=== PATIENT | male | born 1960 | race Caucasian/White ===

== ENCOUNTER → 2016-12-22 | Outpatient (CLI) | payer OTHER ==
[~2016-12-22] MED LIST: AMOX500T PO; FEXO1TAB58 PO; MELO15TA4 PO; PRLSR20 PO
[2016-12-22 13:25] LABS: ALT/SGPT 29 U/L (12-78); BLOOD UREA NITROGEN 18 mg/dl (7-18); CALCIUM 9.1 mg/dl (8.5-10.1); CARBON DIOXIDE 22 mmol/L (21-32); CHLORIDE 109 mmol/L (98-107); GLUCOSE 96 mg/dl (70-99); POTASSIUM 4.1 mmol/L (3.5-5.1); SODIUM 139 mmol/L (136-145)
[2016-12-22 13:36] LABS: ALKALINE PHOSPHATASE 95 U/L (45-117); AST/SGOT 19 U/L (15-37); CHOLESTEROL 141 mg/dl (0-200); CHOLESTEROL/HDL RATIO 3.2; HDL CHOLESTEROL 44 mg/dl; LDL CHOLESTEROL CALCULATED 74 mg/dl; TRIGLYCERIDES 116 mg/dl (0-150); VERY LOW DENSITY LIPOPROT CALC 23 mg/dl
== END | disposition home or self-care (01) ==
LOC: C.LABPVFM 08:03
PROVIDERS: ATTEND Psychiatry & Neurology Neurology
DX: I63.441 Cerebral infarction due to embolism of right cerebellar artery (principal); E78.2 Mixed hyperlipidemia

== ENCOUNTER → 2017-02-03 | Outpatient (CLI) | payer OTHER | END | disposition home or self-care (01) | LOC: C.LABPVFM 11:11 | PROVIDERS: ATTEND Family Medicine | DX: N52.9 Male erectile dysfunction, unspecified (principal) ==

== ENCOUNTER 2017-04-23 20:17 | Emergency (ER) | payer OTHER ==
[~2017-04-23] VITALS: Ht 180.3 cm; Wt 142.2 kg
[2017-04-23 20:21] VITALS: TEMP 37.1; Ht 180.3 cm; Wt 142.2 kg
--- NOTE | 2017-04-23 20:37 | EMERGENCY ROOM VISIT NOTE ---
History Report prepared by Mari: Maria Bardales Under the Supervision of: Dr. Leodan Camilo M.D. First contact with patient: 20:23 Chief Complaint: OTHER COMPLAINT Stated Complaint: HERNIA History of Present Illness The patient is a 56 year old white male with a past medical history of diverticulitis and a previous CVA who presents to the ED with a cc of worsening umbilical hernia pain beginning at 0700 this morning. He rates his discomfort as an 8/10 in severity. Positive increased pain with movement. Negative fevers, chills, nausea, vomiting, urinary symptoms or pain or swelling in his legs. He denies any recent trauma to his abdomen or increased straining. He notes he has not had a bowel movement since last night. He cannot remember the last time he passed gas. He does take daily blood thinners for his history of stroke. He notes he has never undergone surgery on his abdomen before. Source of History: patient Onset: 0700 this morning Position: abdomen (RLQ) Symptom Intensity: 8/10 Timing: worsening Modifying Factors (Worsening): movement Associated Symptoms: No fevers, No chills, No nausea, No vomiting, No urinary symptoms Review of Systems See HPI for pertinent positives and negatives. A total of ten systems were reviewed and were otherwise negative. Past Medical & Surgical Medical Problems: (1) Diverticulitis Colon (W/O Ment Of Hemorrhage) (2) Diverticulosis Colon (W/O Ment Of Hemorrhage) (3) Hyperlipidemia Surgical Problems: (1) History of knee surgery Family History No significant family history Social History Smoking Status: Never Smoker Alcohol Use: none Drug Use: none Marital Status: Housing Status: lives with family Occupation Status: employed Current/Historical Medications Scheduled Aspirin (Aspirin Ec), 81 MG PO DAILY Fexofenadine-Pseudoephedrine (Jane-D 24 Hour Allergy), 1 TAB PO DAILY Omeprazole (Prilosec), 20 MG PO DAILY [Atorvastatin], 1 TAB PO DAILY Allergies Coded Allergies: No Known Allergies (Unverified , 05/14/16) Physical Exam Vital Signs Date Time Temp Pulse Resp B/P (MAP) Pulse Ox O2 Delivery O2 Flow Rate FiO2 04/23/17 21:53 85 20 126/89 92 Room Air 04/23/17 20:21 37.1 89 18 157/93 93 Room Air Physical Exam GENERAL: Awake, alert, obese, well-appearing, NAD HENT: Normocephalic, atraumatic. EYES: Normal conjunctiva. Sclera non-icteric. NECK: Supple. No nuchal rigidity. FROM. RESPIRATORY: CTAB, no rhonchi, wheezing, crackles CARDIAC: RRR, no MRG ABDOMEN: Soft, non-reducible umbilical hernia with mild erythema and pain. BS+ MSK: No chest wall TTP, no LE edema NEURO: GCS 15, CN 2-12 intact, moves all 4s on command SKIN: No rash or jaundice noted. Medical Decision & Procedures ER Provider Diagnostic Interpretation: Radiology results as stated below per my review and radiologist interpretation: ABD/PELVIS IV CONTRAST ONLY CLINICAL HISTORY: 56 years-old Male presenting with umbilical hernia w/ pain, subjectively enlarging hernia. TECHNIQUE: Multidetector CT of the abdomen and pelvis was performed after the administration of intravenous contrast. IV contrast: 94 mL of Optiray 320. A dose lowering technique was used consistent with the principles of ALARA (as low as reasonably achievable). COMPARISON: None. CT DOSE (mGy.cm): The estimated cumulative dose is 1792.62 mGy.cm. FINDINGS: Shoes Salesperson topogram: Unremarkable. Lung bases: Lung bases clear. Normal heart size. No pericardial or pleural effusion. Liver: Normal morphology. Subcentimeter hypodensity in the right hepatic lobe, indeterminate but likely hepatic cyst. Patent hepatic vasculature. Biliary: No intrahepatic or extrahepatic biliary ductal dilatation. Normal gallbladder. Pancreas: Mild parenchymal atrophy. Spleen: Normal. Adrenal glands: Normal. Kidneys and ureters: 8.2 cm left and 3.0 cm right simple appearing renal cysts. Few additional well-defined hypodensities likely also simple cysts. No hydronephrosis. No nephrolithiasis. Ureters normal. Bladder: Incompletely evaluated secondary to underdistention. Pelvic organs: Prostate and seminal vesicles normal. Bowel: Limited sigmoid diverticulosis. Normal appendix. Herniation of small bowel into the umbilical hernia. At this point there is focal downstream obstruction of mid small bowel (series 3 image 278). Upstream, small bowel tapers gradually to a normal caliber in the jejunum. No perienteric inflammatory change in the hernia sac, although fluid is present. No apparent bowel wall thickening. Peritoneal cavity: Small amount of fluid in the umbilical hernia. No free intraperitoneal gas. Lymph nodes: No enlarged lymph nodes in the abdomen or pelvis. Vasculature: Aorta and IVC patent and normal in caliber. Abdominal wall: Umbilical hernia containing small bowel and fluid. Left lipoma versus hernia between the layers of the left oblique muscles. Musculoskeletal: Normal. IMPRESSION: 1. Findings consistent with small bowel obstruction at the level of the umbilical hernia. No bowel wall thickening or perienteric changes in the hernia sac, although fluid is present. This is equivocal for early ischemia of the herniated loop of bowel. Surgical consultation advised. The report will be called/faxed according to standard departmental protocol. Electronically signed by: Alistair Meadows M.D. 04/23/2017 9:59 PM Laboratory Results 04/23/17 20:55 Red Blood Count 5.01, Mean Corpuscular Volume 85.4, Mean Corpuscular Hemoglobin 29.5, Mean Corpuscular Hemoglobin Concent 34.6, Mean Platelet Volume 10.6, Neutrophils (%) (Auto) 76.6, Lymphocytes (%) (Auto) 13.7, Monocytes (%) (Auto) 7.6, Eosinophils (%) (Auto) 1.6, Basophils (%) (Auto) 0.4, Neutrophils # (Auto) 6.13, Lymphocytes # (Auto) 1.10, Monocytes # (Auto) 0.61, Eosinophils # (Auto) 0.13, Basophils # (Auto) 0.03 Test 04/23/17 20:55 04/23/17 21:07 04/23/17 21:20 White Blood Count 8.01 K/uL (4.8-10.8) Red Blood Count 5.01 M/uL (4.7-6.1) Hemoglobin 14.8 g/dL (14.0-18.0) Hematocrit 42.8 % (42-52) Mean Corpuscular Volume 85.4 fL (80-100) Mean Corpuscular Hemoglobin 29.5 pg (25-34) Mean Corpuscular Hemoglobin Concent 34.6 g/dl (32-36) Platelet Count 235 K/uL (130-400) Mean Platelet Volume 10.6 fL (7.4-10.4) Neutrophils (%) (Auto) 76.6 % Lymphocytes (%) (Auto) 13.7 % Monocytes (%) (Auto) 7.6 % Eosinophils (%) (Auto) 1.6 % Basophils (%) (Auto) 0.4 % Neutrophils # (Auto) 6.13 K/uL (1.4-6.5) Lymphocytes # (Auto) 1.10 K/uL (1.2-3.4) Monocytes # (Auto) 0.61 K/uL (0.11-0.59) Eosinophils # (Auto) 0.13 K/uL (0-0.5) Basophils # (Auto) 0.03 K/uL (0-0.2) RDW Standard Deviation 42.6 fL (36.4-46.3) RDW Coefficient of Variation 13.8 % (11.5-14.5) Immature Granulocyte % (Auto) 0.1 % Immature Granulocyte # (Auto) 0.01 K/uL (0.00-0.02) Total Bilirubin 1.2 mg/dl (0.2-1) Direct Bilirubin 0.3 mg/dl (0-0.2) Aspartate Amino Transf (AST/SGOT) 21 U/L (15-37) Alanine Aminotransferase (ALT/SGPT) 29 U/L (12-78) Alkaline Phosphatase 93 U/L (45-117) Total Protein 6.8 gm/dl (6.4-8.2) Albumin 3.7 gm/dl (3.4-5.0) Lipase 130 U/L (73-393) Bedside Hemoglobin 15.3 g/dl (14.0-18.0) Bedside Hematocrit 45 % (42-52) Bedside Sodium 140 mEq/L (135-144) Bedside Potassium 3.9 mEq/L (3.3-5.0) Bedside Chloride 104 mEq/L (101-112) Bedside Total CO2 25 mEq/l (24-31) Anion Gap 16.0 mmol/L (16-25) Bedside Blood Urea Nitrogen 18 mg/dl (7-18) Bedside Creatinine 0.9 mg/dl (0.6-1.3) Bedside Glucose (other) 127 mg/dl (70-99) Bedside Ionized Calcium (Ad) 1.16 mmol/l (1.12-1.32) Lactic Acid Level 1.3 mmol/L (0.4-2.0) Laboratory results reviewed by me Medications Administered Medications (Trade) Dose Ordered Sig/Morgan Route Start Time Stop Time Status Last Admin Dose Admin Morphine Sulfate (MoRPHine SULFATE INJ) 10 mg NOW STAT IM 04/23/17 20:40 04/23/17 20:43 DC 04/23/17 21:13 10 MG Ondansetron HCl (Zofran Inj) 4 mg NOW STAT IV 04/23/17 20:40 04/23/17 20:43 DC 04/23/17 21:13 4 MG ED Course 2026: The patient was evaluated in room C5. A complete history and physical exam was performed. 2048: I discussed the patients case with Dr. Todd, [facility] [place]. The patient will be further evaluated. 2204: Dr. Todd informed me he has reduced the patients hernia. We will make sure he can tolerate PO and will have him follow up with General Surgery. 2211: I reevaluated the patient. He is feeling much better. I discussed his results and discharge instructions and he verbalized complete understanding and agreement. Medical Decision The patient is a 56 year old white male with a past medical history of diverticulitis and a previous CVA who presents to the ED with a cc of worsening umbilical hernia pain beginning at 0700 this morning. Triage Nursing notes reviewed. The patient's presentation and history were concerning for abdominal pain. Differential diagnosis: Etiologies such as appendicitis, diverticulitis, PUD, biliary pathology, UTI, pancreatitis, obstruction, mesenteric ischemia, aortic pathology, infections, inflammatory bowel disease, renal colic, as well as others were entertained. Patient was seen and evaluated at the bedside. Patient did have prior history of a fairly small lump likely hernia. Patient states that became more protruding this morning as he was hunting and up and history stand. Patient denies any history of heavy lifting, cough, sneezing. Patient does complain affirmative pain. Patient states that he's been obstipated and has not had a bowel movement since yesterday. Patient denies any nausea vomiting or fevers or chills. On exam patient does have a hernia at the umbilicus. It is painful and tender. Patient did have blood work along with a CT of the head and pelvis completed. I did speak with general surgery initially given the concern for an incarcerated hernia. Patient's CT of the arm pelvis did show a small bowel obstruction and a possibly early sign of ischemia at the hernia site. General surgery had already seen the patient prior to this in the patient's hernia been reduced without complication. Patient was not complaining of much pain. Patient's blood work was fairly unremarkable as the patient had a normal white blood cell count normal lactate. Patient was able tolerate by mouth without issue. Patient was given an abdominal binder which is placed over the abdomen and the patient was given follow-up with general surgery in order to optimize the patient and discussed outpatient treatment for his hernia repair. Patient was amenable to this plan. Patient was told to slowly advance his diet as tolerated. Patient was given warning signs for which she should return to the emergency department. Patient was given strict follow-up, discharge, and return precautions. All questions were answered. Patient was deemed suitable for outpatient follow-up at this time. Patient agreed with the plan of care and was safely discharged home. Medication Reconcilliation Current Medication List: was personally reviewed by me Blood Pressure Screening Patient's blood pressure: Elevated blood pressure Blood pressure disposition: Referred to PCP Consults Time Called: 2045 Consulting Physician: CHRISTIAN Che General Surgery Returned Call: 2048 I discussed the patients case with CHRISTIAN Che General Surgery. The patient will be further evaluated. Impression Primary Impression: SBO (small bowel obstruction) Additional Impression: Incarcerated hernia Scribe Attestation The scribe's documentation has been prepared under my direction and personally reviewed by me in its entirety. I confirm that the note above accurately reflects all work, treatment, procedures, and medical decision making performed by me. Departure Information Dispostion Home / Self-Care Referrals Hilary Richard M.D. (PCP) Topher Todd, DO Patient Instructions Hernia, Hernia How Develops, [facility] Additional Instructions Please return to the emergency department if you have worsening or recurrent symptoms not amenable to at-home treatment. Please call for a follow-up appointment with her primary care physician. Please take your medications as prescribed. If you have other concerns and/or complaints please feel free to also call your primary care physician's office or return the ED for further evaluation, management, and treatment. You were found to have an elevated blood pressure today (>120 sytolic or >90 diastolic). Per medicare guidelines, you need to follow up with this blood pressure screening with your Primary Care Physician (PCP). For a new PCP call [phone]. You received narcotic or benzodiazepene medication while in the emergency room today. This is an addictive medication that may cause drowziness as well as constipation. Do not drive, operate heavy machinery, or drink alcohol under the influence of this medication. You may take 600 mg Ibuprofen every 6 hours as needed for pain with food for no more than 2 consecutive days. You may take tylenol 1000 mg every 6 hours as needed for pain. You may take motrin and tylenol separately or at the same time. Please ensure that you call Dr. Todd office in order to schedule follow-up appointment. Please use clear liquids and slowly advance her diet as tolerated. Please avoid things like excessive straining either with acting heavy items, we are having a bowel movement, sneezing, and/or coughing. If you do have to sneeze or cough, but mouth would do it with her mouth open. You have been examined and treated today on an emergency basis only. This is not a substitute for, or an effort to provide, complete comprehensive medical care. It is impossible to recognize and treat all injuries or illnesses in a single emergency department visit. It is therefore important that you follow up closely with [facility], your PCP, and/or your specialist(s). Call as soon as possible for an appointment. Thank you for your time and consideration. I look forward to speaking with you again soon. Please don't hesitate to call us if you have any questions. Problem Qualifiers
[2017-04-23] MEDS ORDERED: MoRPHine SULFATE 10 MG/ML CARP/VIAL IM STA (20:40)
[2017-04-23] MEDS ORDERED: ONDANSETRON INJ 2 MG/ML 2 ML VIAL IV STA (20:40)
[2017-04-23] MEDS ORDERED: ASPI81TA28 PO (20:48)
[2017-04-23] MEDS ORDERED: ATORVASTATIN PO (20:48)
[2017-04-23] MEDS ORDERED: OPTIRAY 320 IV PRN (21:00)
[2017-04-23 21:09] LABS: BASO % 0.4 %; BASO ABS # 0.03 K/uL (0-0.2); COMPLETE YES; EOS % 1.6 %; HEMATOCRIT 42.8 % (42-52); IG% 0.1 %; LYMPH % 13.7 %; MEAN CELL VOLUME 85.4 fL (80-100); MEAN CORPUSCULAR HEMOGLOBIN 29.5 pg (25-34); MEAN CORPUSCULAR HGB CONC 34.6 g/dl (32-36); MEAN PLATELET VOLUME 10.6 fL (7.4-10.4); MONO % 7.6 %; NEUT % 76.6 %; PLATELET COUNT 235 K/uL (130-400); RED BLOOD COUNT 5.01 M/uL (4.7-6.1); WHITE BLOOD COUNT 8.01 K/uL (4.8-10.8)
[2017-04-23 21:21] LABS: ISTAT CREATININE 0.9 mg/dl (0.6-1.3); ISTAT HEMOGLOBIN 15.3 g/dl (14.0-18.0); ISTAT IONIZED CALCIUM 1.16 mmol/l (1.12-1.32)
--- NOTE | 2017-04-23 22:00 | DIAGNOSTIC IMAGING REPORT ---
ABD/PELVIS IV CONTRAST ONLY CLINICAL HISTORY: 56 years-old Male presenting with umbilical hernia w/ pain, subjectively enlarging hernia. TECHNIQUE: Multidetector CT of the abdomen and pelvis was performed after the administration of intravenous contrast. IV contrast: 94 mL of Optiray 320. A dose lowering technique was used consistent with the principles of ALARA (as low as reasonably achievable). COMPARISON: None. CT DOSE (mGy.cm): The estimated cumulative dose is 1792.62 mGy.cm. FINDINGS: P 3 Armament/Ordnance Ima Technician topogram: Unremarkable. Lung bases: Lung bases clear. Normal heart size. No pericardial or pleural effusion. Liver: Normal morphology. Subcentimeter hypodensity in the right hepatic lobe, indeterminate but likely hepatic cyst. Patent hepatic vasculature. Biliary: No intrahepatic or extrahepatic biliary ductal dilatation. Normal gallbladder. Pancreas: Mild parenchymal atrophy. Spleen: Normal. Adrenal glands: Normal. Kidneys and ureters: 8.2 cm left and 3.0 cm right simple appearing renal cysts. Few additional well-defined hypodensities likely also simple cysts. No hydronephrosis. No nephrolithiasis. Ureters normal. Bladder: Incompletely evaluated secondary to underdistention. Pelvic organs: Prostate and seminal vesicles normal. Bowel: Limited sigmoid diverticulosis. Normal appendix. Herniation of small bowel into the umbilical hernia. At this point there is focal downstream obstruction of mid small bowel (series 3 image 278). Upstream, small bowel tapers gradually to a normal caliber in the jejunum. No perienteric inflammatory change in the hernia sac, although fluid is present. No apparent bowel wall thickening. Peritoneal cavity: Small amount of fluid in the umbilical hernia. No free intraperitoneal gas. Lymph nodes: No enlarged lymph nodes in the abdomen or pelvis. Vasculature: Aorta and IVC patent and normal in caliber. Abdominal wall: Umbilical hernia containing small bowel and fluid. Left lipoma versus hernia between the layers of the left oblique muscles. Musculoskeletal: Normal. IMPRESSION: 1. Findings consistent with small bowel obstruction at the level of the umbilical hernia. No bowel wall thickening or perienteric changes in the hernia sac, although fluid is present. This is equivocal for early ischemia of the herniated loop of bowel. Surgical consultation advised. The report will be called/faxed according to standard departmental protocol. Electronically signed by: Alistair Meadows M.D. 04/23/2017 9:59 PM Dictated Date/Time: 04/23/2017 9:51 PM
--- NOTE | 2017-04-23 22:25 | Medical Consult ---
Consultation Date of Consultation: Apr 23, 2017. Attending Physician: Reason for Consultation: Umbilical hernia History of Present Illness 56-year-old obese male with several year history of a known umbilical hernia, presents to the emergency department with increased pain and swelling at his umbilicus. He was hunting this morning and noticed some pain after getting down from his tree stand. He noticed it was firm and more swollen than normal. It was very tender to the touch. He has never had any previous episodes similar to this. He experienced some cramping abdominal pain as well. No prior abdominal pain, no prior umbilical hernia repair. He has not been passing gas. Mild nausea, no vomiting. Past Medical/Surgical History Past medical history: Morbid obesity, history of stroke, umbilical hernia, GERD , hyperlipidemia Past surgical history: Denies previous abdominal surgery Family History No significant family history Social History Smoking Status: Never Smoker Drug Use: none Marital Status: Housing Status: lives with family Occupation Status: employed Allergies Coded Allergies: No Known Allergies (Unverified , 05/14/16) Home Medications Active Reported [Atorvastatin] 1 Tab PO DAILY Aspirin Ec (Aspirin) 81 Mg Tab 81 Mg PO DAILY Prilosec (Omeprazole) 20 Mg Capcr 20 Mg PO DAILY Jane-D 24 Hour Allergy (Fexofenadine-Pseudoephedrine) 1 Tab Tab 1 Tab PO DAILY 30 Days Current Inpatient Medications Current Inpatient Medications Medications (Trade) Dose Ordered Sig/Morgan Route Start Time Stop Time Status Last Admin Dose Admin Ioversol (Optiray 320) 100 ml UD PRN IV 04/23/17 21:00 04/27/17 20:59 Review of Systems 10 point review of systems negative except as above Physical Exam Date Time Temp Pulse Resp B/P (MAP) Pulse Ox O2 Delivery O2 Flow Rate FiO2 04/23/17 21:53 85 20 126/89 92 Room Air 04/23/17 20:21 37.1 89 18 157/93 93 Room Air General Appearance: WD/WN, no apparent distress, + obese Head: normocephalic, atraumatic Eyes: normal inspection, PERRL ENT: normal ENT inspection, hearing grossly normal Neck: supple, no adenopathy, thyroid normal, no JVD, trachea midline Respiratory/Chest: chest non-tender, lungs clear, normal breath sounds, no respiratory distress, no accessory muscle use Cardiovascular: regular rate, rhythm, no edema, no gallop, no JVD, no murmur, normal peripheral pulses Abdomen/GI: normal bowel sounds, soft, + tenderness (tenderness at umbilicus, otherwise unremarkable), + pertinent finding (obese abdomen. Umbilical hernia that was able to be reduced at the bedside. No significant erythema or purpura. 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-XII nml as tested, alert, normal mood/affect, oriented x 3 Skin: normal color, warm/dry, no rash Lymphatic: no adenopathy Laboratory Results Last 24 Hours Test 04/23/17 20:55 04/23/17 21:07 04/23/17 21:20 White Blood Count 8.01 K/uL Red Blood Count 5.01 M/uL Hemoglobin 14.8 g/dL Hematocrit 42.8 % Mean Corpuscular Volume 85.4 fL Mean Corpuscular Hemoglobin 29.5 pg Mean Corpuscular Hemoglobin Concent 34.6 g/dl Platelet Count 235 K/uL Mean Platelet Volume 10.6 fL Neutrophils (%) (Auto) 76.6 % Lymphocytes (%) (Auto) 13.7 % Monocytes (%) (Auto) 7.6 % Eosinophils (%) (Auto) 1.6 % Basophils (%) (Auto) 0.4 % Neutrophils # (Auto) 6.13 K/uL Lymphocytes # (Auto) 1.10 K/uL Monocytes # (Auto) 0.61 K/uL Eosinophils # (Auto) 0.13 K/uL Basophils # (Auto) 0.03 K/uL RDW Standard Deviation 42.6 fL RDW Coefficient of Variation 13.8 % Immature Granulocyte % (Auto) 0.1 % Immature Granulocyte # (Auto) 0.01 K/uL Total Bilirubin 1.2 mg/dl Direct Bilirubin 0.3 mg/dl Aspartate Amino Transf (AST/SGOT) 21 U/L Alanine Aminotransferase (ALT/SGPT) 29 U/L Alkaline Phosphatase 93 U/L Total Protein 6.8 gm/dl Albumin 3.7 gm/dl Lipase 130 U/L Bedside Hemoglobin 15.3 g/dl Bedside Hematocrit 45 % Bedside Sodium 140 mEq/L Bedside Potassium 3.9 mEq/L Bedside Chloride 104 mEq/L Bedside Total CO2 25 mEq/l Anion Gap 16.0 mmol/L Bedside Blood Urea Nitrogen 18 mg/dl Bedside Creatinine 0.9 mg/dl Bedside Glucose (other) 127 mg/dl Bedside Ionized Calcium (Ad) 1.16 mmol/l Lactic Acid Level 1.3 mmol/L CT abdomen/pelvis: Umbilical hernia with a small loop of bowel within the hernia. No evidence of ischemia or significant obstruction on my review. Assessment & Plan 56-year-old obese male with umbilical hernia. I was able to reduce the hernia at the bedside and the patient had significant relief from his cramping and pain. I discussed his options to include admission with umbilical hernia repair tomorrow versus elective repair as an outpatient. The patient elects for repair as an outpatient. No acute surgical intervention indicated Okay to discharge patient home after brief observation We will give the patient an abdominal binder, and he was advised to do no heavy lifting restraints activity until he sees us in clinic. He was educated on the signs and symptoms of incarceration, strangulation, and obstruction. He was also instructed on how to potentially reduce his hernia. I gave them my card and he can follow up as an outpatient to plan for elective repair Return precautions given Diagnosis, treatment options, details of the surgery, and the plan of care were discussed the patient, all questions are answered, the patient expressed understanding and agreed with the plan of care as stated
[2017-04-23 22:47] VITALS: BP 133/86; PULSE 88; O2SAT 94
== END 2017-04-23 22:52 | disposition home or self-care (01) ==
LOC: C.EDB 20:18 → C.EDC 22:52
DX: K42.0 Umbilical hernia with obstruction, without gangrene (principal); K57.30 Diverticulosis of large intestine without perforation or abscess without bleeding; R40.2412 Glasgow coma scale score 13-15, at arrival to emergency department; R03.0 Elevated blood-pressure reading, without diagnosis of hypertension; Z79.82 Long term (current) use of aspirin

== ENCOUNTER 2017-05-10 10:29 | Day surgery (SDC) | payer OTHER ==
[2017-05-04 08:14] VITALS: BMI 44.0
[~2017-05-10] VITALS: Ht 180.3 cm; Wt 143.2 kg
[~2017-05-10 10:29] MED LIST changes: -AMOX500T PO; +ASPI81TA28 PO; +ATOR-24 PO; +CEFAZOLIN 3000MG IV PUSH 15 ML IV SCH; +CLR10 PO; -FEXO1TAB58 PO; +LACTATED RINGER'S 1000ML 1,000 ML IV SCH; -MELO15TA4 PO
[2017-05-10 11:00] VITALS: BP 144/97; PULSE 68; TEMP 36.8; O2SAT 95; Ht 180.3 cm; Wt 143.2 kg
[2017-05-10] MEDS ORDERED: MIDAZOLAM HCL 1 MG/ML 2ML VIAL ONE (11:45)
[2017-05-10] MEDS ORDERED: PROPOFOL IV EMULSION 10 MG/ML 20 ML VIAL IV ONE ×3 (11:45→13:32)
[2017-05-10] MEDS ORDERED: LIDOCAINE HCL 2% 2 ML VIAL (20MG/ML) ONE (11:45)
[2017-05-10] MEDS ORDERED: FENTANYL CITRATE INJ 50 MCG/1 ML 2 ML VIAL ONE (11:45)
[2017-05-10] MEDS ORDERED: ONDANSETRON INJ 2 MG/ML 2 ML VIAL ONE (11:45)
[2017-05-10] MEDS ORDERED: HYDROmorphone INJ 1 MG/ML SYR IV PRN (12:15)
[2017-05-10] MEDS ORDERED: KETOROLAC TROMETHAMINE 30 MG/ML VIAL IV. PRN (12:15)
[2017-05-10] MEDS ORDERED: ONDANSETRON INJ 2 MG/ML 2 ML VIAL IV PRN ×2 (12:15→15:15)
[2017-05-10] MEDS ORDERED: LABETALOL HCL IV 5 MG/ML 20ML IV PRN (12:15)
[2017-05-10] MEDS ORDERED: ATROPINE SULFATE 0.1 MG/ML 5ML SYR IV PRN (12:15)
--- NOTE | 2017-05-10 12:35 | History & Physical Bridge Note ---
H&P Re-Evaluation Bridge Note: I have examined the patient, reviewed the History & Physical and in the interval since the performance of the History & Physical I have noted the following changes of clinical significance: No changes noted
[2017-05-10] MEDS ORDERED: BUPIVACAINE 0.5 % 5 MG/1 ML MPF 30ML VIAL ONE (12:57)
[2017-05-10] MEDS ORDERED: EpHEDrine SULFATE 50MG/5ML SYR ONE (13:32)
[2017-05-10] MEDS ORDERED: ROCURONIUM BROMIDE 10 MG/ML 5 ML VIAL IV ONE (13:32)
[2017-05-10] MEDS ORDERED: DEXAMETHASONE SOD INJ 4 MG/ML VIAL ONE (13:32)
[2017-05-10] MEDS ORDERED: PHENYLEPHRINE 100MCG/ML 5ML SYR ONE (13:32)
[2017-05-10] MEDS ORDERED: NEOSTIGMINE METHYLSULFATE 5 MG/5 ML SYR ONE (13:33)
[2017-05-10] MEDS ORDERED: GLYCOPYRROLATE INJ 0.2 MG/ML VIAL ONE (13:33)
--- NOTE | 2017-05-10 14:42 | [facility] Post Operative Brief Note ---
Immediate Operative Summary Operative Date May 10, 2017. Pre-Operative Diagnosis Umbilical Hernia, incarcerated Post-Operative Diagnosis Same as preop Procedure(s) Performed Open Umbilical Hernia Repair with Mesh, incarcerated Surgeon Dr. Todd Asbestos Surveyor Surgeon(s) Merritt Isaac PA-C Estimated Blood Loss 5 ml Findings incarcerated omentum, very thin umbilicus, small defect to base of umbilicus created and closed. 3.5cm fascial defect, 6.4 cm cqur ventral mesh sown into place with 0 nurolon suture. Specimens None per Surgeon Drains None Anesthesia GETA Complication(s) None Disposition Recovery Room / PACU
--- NOTE | 2017-05-10 14:50 | [facility] Operative Report ---
Operative Report Operative Date May 10, 2017. Pre-Operative Diagnosis Umbilical Hernia, incarcerated Post-Operative Diagnosis Same Procedure(s) Performed Incarcerated umbilical hernia repair with mesh Surgeon Dr. Todd Loaf Counter Surgeon(s) Merritt Isaac PA-C Estimated Blood Loss 5 ml Findings incarcerated omentum, very thin umbilicus, small defect to base of umbilicus created and closed. 3.5cm fascial defect, 6.4 cm cqur ventral mesh sown into place with 0 nurolon suture. Specimens None per Surgeon Drains None Anesthesia GETA Complication(s) None Disposition Recovery Room / PACU Indications 56-year-old male with symptomatic umbilical hernia with incarcerated omentum. He had been seen previously in the emergency department and had a small bowel obstruction secondary to the hernia, but this resolved with reduction of the bowel. Plan for umbilical hernia repair with mesh. The risks of the procedure were discussed, all questions were answered, and the patient agreed to proceed with surgery as planned. Description of Procedure The patient was properly identified, consented, and taken to the operating room where he was placed in the supine position. General endotracheal anesthesia was induced. SCDs and a safety belt were placed. Preoperative antibiotics were administered. The patient's abdomen was prepped and draped in the standard sterile fashion. Surgical timeout was performed and all parties were in agreement that this was the correct patient and procedure to be performed and we continued as planned. A curvilinear infraumbilical incision was made and deepened down to the fascia with blunt dissection. The umbilical stalk was circumferentially dissected with a Cherise, and divided below the level of the skin. The umbilicus was very thin and the hernia sac was densely scarred to it. There was a small 1 cm injury created in the skin to the left side of the base of the umbilicus. This was repaired with a running 3-0 Vicryl deep dermal suture followed by 4-0 Monocryl running subcuticular suture. There is incarcerated omentum in the hernia sac. Hernia sac was circumferentially dissected away from surrounding soft tissue and off of the fascia. A 3.5 cm fascial defect was encountered. The hernia was reduced. The fascia anteriorly and posteriorly was cleared of investing tissue for several centimeters. Hemostasis was achieved within the wound. A 6.4 cm piece of C-Qur ventral hernia mesh was sown into place with interrupted 0 Nurolon sutures at the 12, 3, 6 and 9 o'clock positions. The defect was then closed transversely with interrupted 0 Nurolon [id number] sutures. The wound was irrigated and hemostasis confirmed. The umbilicus was tacked down to the fascia with 3-0 Vicryl sutures. Local anesthetic in the form of 0.5% Marcaine was injected in the fascia and along the skin incision. The skin was closed with interrupted 3-0 Vicryl deep dermal sutures, followed by 4-0 Monocryl running subcuticular suture. Dermabond was placed over the defect and the skin of the umbilicus and over the wound. A pressure dressing was then applied and abdominal binder was placed. The patient was extubated in the operating room and taken to the PACU where he recovered without apparent incident. All sponge, instrument and needle counts were correct at the conclusion of the procedure. The patient tolerated the procedure well. I attest to the content of the Intraoperative Record and any orders documented therein. Any exceptions are noted below.
[2017-05-10] MEDS ORDERED: SODIUM CHLORIDE 0.9% 1000ML 1,000 ML IV SCH (15:03)
[2017-05-10] MEDS ORDERED: OXYC-57 PO (15:03)
--- NOTE | 2017-05-10 15:03 | Discharge Instructions ---
Discharge Instructions Date of Service May 10, 2017. Visit Reason for Visit: Umbilical Hernia Discharge Discharge Diagnosis / Problem: Umbilical Discharge Goals Goal(s): Decrease discomfort, Improve function Activity Recommendations Activity Limitations: as noted below Lifting Limitations: no more than 10 pounds, until after follow-up appointment Exercise/Sports Limitations: until after follow-up appointment Shower/Bathe: tomorrow Driving or Machine Use: resume 3 days after discharge (Do not drive while under the influence of narcotic pain medication) Anesthesia . Post Anesthesia Instructions: If you have had General Anesthesia or IV Sedation: * Do not drive today. * Resume driving when surgeon permits. * Do not make important decisions or sign legal documents today. * Call surgeon for: 1. Temperature elevations greater than 101 degrees F. 2. Uncontrollable pain. 3. Excessive bleeding. 4. Persistent nausea and vomiting. 5. Medication intolerance (nausea, vomiting or rash). * For nausea and vomiting use only clear liquids such as: tea, soda, bouillon until nausea subsides, then gradually increase diet as tolerated. * If you have any concerns or questions, call your surgeon's office. If physician is unavailable and it is an emergency, call 911 or go to the nearest emergency room. . Instructions / Follow-Up Instructions / Follow-Up There is surgical glue covering your incision site. Please allow this to fall off on its own over the next 1-2 weeks. You have been given an abdominal binder. Please wear this whenever you are up and moving around to help strengthen your repair and reduce recurrence during your recovery period. You have been prescribed percocet for pain control. You may alternate this with ibuprofen for better pain relief. Please do not use tylenol while using the percocet as it already has tylenol in it. Please follow-up with Dr. Todd in the office in 1-2 weeks. Please contact our office at to schedule an appointment if you have not done so already. Please feel free to contact our office with any further questions or concerns at the number listed above. Diet Recommendations Recommended Home Diet: no limitations, resume previous diet Procedures Procedures Performed: Open Umbilical Hernia Repair with Mesh, incarcerated Pending Studies Studies pending at discharge: no Medical Emergencies . Who to Call and When: Medical Emergencies: If at any time you feel your situation is an emergency, please call 911 immediately. . Non-Emergent Contact Non-Emergency issues call your: Primary Care Provider, Surgeon Call Non-Emergent contact if: you have a fever, temperature is above 101.5, your pain is not controlled, your pain is worsening, wound has increased drainage, wound has increased redness . . "Provider Documentation" section prepared by Merritt Willoughby. . [place] Drug Monitoring Program Search Results: patient reviewed within database (no matching patient identified)
[2017-05-10] MEDS ORDERED: OXYCODONE/ACETAMINOPHEN 5-325 TAB PO PRN ×2 (15:15)
[2017-05-10] MEDS ORDERED: IBUPROFEN 600 MG TAB PO PRN (15:15)
--- NOTE | 2017-05-10 15:38 | Anesthesiology Progress Note ---
Anesthesia Post Op Note Date & Time May 10, 2017 at 15:38 Vital Signs Pain Intensity: 4.0 Vital Signs Past 12 Hours Date Time Temp Pulse Resp B/P (MAP) Pulse Ox O2 Delivery O2 Flow Rate FiO2 05/10/17 14:56 36.3 77 12 135/80 97 Oxymask 10 05/10/17 11:00 36.8 68 18 144/97 (113) 95 Room Air Notes Mental Status: alert / awake / arousable, participated in evaluation Pt Amnestic to Procedure: Yes Nausea / Vomiting: adequately controlled Pain: adequately controlled Airway Patency, RR, SpO2: stable & adequate BP & HR: stable & adequate Hydration State: stable & adequate Anesthetic Complications: no major complications apparent
[2017-05-10 15:55] VITALS: BP 150/94; PULSE 74; TEMP 36.5; O2SAT 95
== END 2017-05-10 16:45 | disposition home or self-care (01) ==
LOC: C.ACU 10:29
PROVIDERS: ATTEND Surgery
DX: K42.0 Umbilical hernia with obstruction, without gangrene (principal); K21.9 Gastro-esophageal reflux disease without esophagitis; E78.00 Pure hypercholesterolemia, unspecified; G47.33 Obstructive sleep apnea (adult) (pediatric); E66.9 Obesity, unspecified; M16.11 Unilateral primary osteoarthritis, right hip; N52.9 Male erectile dysfunction, unspecified; Z86.73 Personal history of transient ischemic attack (TIA), and cerebral infarction without residual deficits; Z79.899 Other long term (current) drug therapy

== ENCOUNTER → 2017-05-13 | Outpatient (CLI) | payer OTHER ==
[~2017-05-13] MED LIST changes: -CEFAZOLIN 3000MG IV PUSH 15 ML IV SCH; -LACTATED RINGER'S 1000ML 1,000 ML IV SCH; +OXYC-57 PO
== END | disposition home or self-care (01) ==
LOC: C.LABPVFM 10:29
PROVIDERS: ATTEND Family Medicine
DX: J02.9 Acute pharyngitis, unspecified (principal)

== ENCOUNTER 2018-08-23 05:05 | Inpatient (IN) ==
--- NOTE | 2018-06-23 10:54 | Anesthesiology Consultation ---
Date of Service June 23, 2018 Assessment & Plan (1) Encounter for pre-operative examination: Chart Review Chart Review: Acceptable Risk for Surgery and Patient seen in Pre Admission Testing Teaching & Discussion Instructed NPO after midnight before surgery, except medications with 15 cc of water. Medication instructions provided according to the PAT guidelines. History Surgery Operation Date: 07/28/18 11:50 Proposed Procedures p Right Anterior Total Hip Arthroplasty - Merritt Rdz DO Height/Weight Height: 5 ft 11 in Weight: 142.7 kg Allergies Allergy/AdvReac Type Severity Reaction Status Date / Time No Known Allergies Allergy Unverified 06/19/18 10:59 Medications Home Medications Medication Instructions Recorded Confirmed Last Taken Omeprazole 20 mg PO QPM 06/19/18 06/19/18 Unknown aspirin [Aspir-81] 1 tab PO HS 06/19/18 06/19/18 Unknown atorvastatin 40 mg PO HS 06/19/18 06/19/18 Unknown loratadine [Claritin] 10 mg PO HS 06/19/18 06/19/18 Unknown Past Medical History Medical History Acid reflux Arthritis History of stroke 05/14/16--[facility] ED, transferred to [place]. NO RESIDUAL EFFECTS. --Brain MRI 05/18/16: Relatively large subacute infarct inferior right cerebellar hemisphere. 2 punctate subacute infarct right parietal convexity. Study is otherwise negative. Morbid obesity PFO (patent foramen ovale) Found on echo at [place] during w/u for ischemic stroke 2015. No evidence of afib or flutter seen with Holter so per neuro pt to continue ASA 81 and statin indefinitely for CVA prevention. Sinus problem CHRONIC SINUS DRAINAGE/MUCUS Past Family History Family History Grandmother (Paternal) Family history of cancer Past Surgical History Surgical History History of arthroscopy of left knee History of colonoscopy History of hernia repair Past Anesthesia History No Hx of Anesthesia Complications, No Family Hx of Anesthesia Complications and Other IN RECOVERY ROOM FOR HERNIA ([facility] 1 YR AGO) PT FELT PANICKED WHEN WAKING UP DUE TO LYING ON BACK & SINUS DRAINAGE PROBLEM- FELT LIKE HE WAS CHOKING...REQUESTING TO PLEASE KEEP HEAD ELEVATED IF POSSIBLE. History of PONV No Motion Sickness Screening History of Motion Sickness: No Social History Smoking Status: Never smoker Do You Dip or Chew Tobacco: No Hx Alcohol Use: No Hx Substance Use: No substance use type: does not use Exercise / Class Metabolic Activity III < 4 Walking/Shop/Light housework (pt reports SOB with stairs, denies CP. Obese/deconditioned) Review of Systems Pt denies any recent chest pain, shortness of breath, palpitations, fever. Currently being treated for sinus infection by PCP with Augmentin x 10 days ( will finish course prior to surgery) Physical Exam Vital Signs BP: 121/79 P: 89bpm SPO2: 94% RA T: 98.0 F R: 16 ENMT Mouth: no dental restorations, no chipped teeth and no loose teeth Thyromental Distance: > or= 3.5 Finger Breadths (3.5) Mallampati Class: II Neck normal visual inspection, + short neck and + thick neck; neck extension not limited Respiratory normal respiratory effort Auscultation: lungs clear to auscultation bilaterally Cardiovascular Rate/Rhythm: regular rate and regular rhythm Heart Sounds: no murmur Vessels: no carotid bruit Testing Electrocardiogram Date: 06/23/18 Findings: + NSR @ (73) Left axis deviation. iRBBB. No significant change from 05/02/17 EKG. Chest X-Ray Date: 06/23/18 Findings: + NAD Echocardiogram Date: 05/17/16 EF: 65% Normal LV size and systolic function with no regional wall motion abnormalities. No concentric LVH. Right ventricular dilation with normal RV systolic function. And intravenous agitated saline injection indicated a large right to left shunt across the atrial septum. Laboratory Results 06/23/18 11:57 06/23/18 11:57 Blood Type O Positive 06/23/18 11:57 Antibody Screen NEGATIVE 06/23/18 11:57 PT 10.4 Seconds (9.0-12.0) 06/23/18 11:57 INR 1.0 (0.9-1.1) 06/23/18 11:57 APTT 28.2 Seconds (21.0-31.0) 06/23/18 11:57
--- NOTE | 2018-06-23 11:51 | PAT Medication Instructions ---
Medication Instructions Date of Service June 23, 2018 Home Medications Omeprazole 20 mg PO QPM aspirin [Aspir-81] 1 tab PO HS atorvastatin 40 mg PO HS loratadine [Claritin] 10 mg PO HS Take evening before surgery Omeprazole 20 mg PO QPM aspirin [Aspir-81] 1 tab PO HS atorvastatin 40 mg PO HS loratadine [Claritin] 10 mg PO HS Other Notes If you have any questions please call us at [phone] or [phone] or [phone] or [phone]
--- NOTE | 2018-06-23 12:27 | XRay Report ---
XR chest Pre-admission PA/Lat CLINICAL HISTORY: pat preoperative evaluation COMPARISON STUDY: No previous studies for comparison. FINDINGS: 05/10/2016 IMPRESSION: Negative chest. The above report was generated using voice recognition software. It may contain grammatical, syntax or spelling errors. Electronically signed by: Clarke Gonzalez M.D. 06/23/2018 12:26 PM
[2018-06-23 12:58] LABS: Basophils # (auto) 0.04 K/uL (0-0.2); Basophils % (auto) 0.8 %; Eosinophils # (auto) 0.31 K/uL (0-0.5); Eosinophils % (auto) 6.1 %; Hematocrit (blood only) 43.4 % (42-52); Hemoglobin 14.6 g/dL (14.0-18.0); Immature Granulocytes # (auto) 0.01 K/uL (0.00-0.02); Immature Granulocytes % (auto) 0.2 %; Lymphocytes # (auto) 1.46 K/uL (1.2-3.4); Lymphocytes % (auto) 28.9 %; Mean Corpuscular Hgb Conc 33.6 g/dL (32-36); Mean Corpuscular Volume 86.8 fL (80-100); Mean Platelet Volume 11.2 fL (7.4-10.4); Monocytes # (auto) 0.47 K/uL (0.11-0.59); Monocytes % (auto) 9.3 %; Neutrophils # (auto) 2.77 K/uL (1.4-6.5); Neutrophils % (auto) 54.7 %; Platelet Count 248 K/uL (130-400); RDW Coefficient of Variation 13.8 % (11.5-14.5); RDW Standard Deviation 43.7 fL (36.4-46.3); White Blood Count 5.06 K/uL (4.8-10.8)
[2018-06-23 13:09] LABS: Partial Thromboplastin Ratio 1.1; Partial Thromboplastin Time 28.2 Seconds (21.0-31.0); Prothrombin Time 10.4 Seconds (9.0-12.0)
[2018-06-23 13:30] LABS: BUN Creatinine Ratio 18.2 (10-20); Calcium 9.1 mg/dl (8.5-10.1); Creatinine Clr Calc Pharmacy 112.6 ml/min; Est GFR (African American) 90.5; Est GFR (Non-African American) 78.1; Potassium 4.2 mmol/L (3.5-5.1)
--- NOTE | 2018-08-22 20:00 | History & Physical Report ---
Date of Service August 22, 2018 Assessment & Plan (1) Osteoarthritis of right hip: We will proceed with a right anterior total hip arthroplasty. Postoperatively he will be placed on aspirin twice a day for DVT prophylaxis. He will be kept overnight in the hospital for postop medical management. He plans to use [employer] upon discharge. Present on Admission?: Yes History of Present Illness Chief Complaint: Primary osteoarthritis of the right hip Primary Care Provider: Hilary Richard MD Humberto is a very pleasant 58-year-old male who is been dealing with a several year history of increasing right hip and groin pain. X-rays and clinical examination were diagnostic for primary osteoarthritis of the right hip. After failing conservative treatment, he has elected to proceed with a right anterior total hip arthroplasty. Allergies Allergy/AdvReac Type Severity Reaction Status Date / Time No Known Allergies Allergy Unverified 06/19/18 10:59 Home Medications Home Medications Medication Instructions Recorded Confirmed Type Omeprazole 20 mg PO QPM 06/19/18 06/19/18 History aspirin [Aspir-81] 1 tab PO HS 06/19/18 06/19/18 History atorvastatin 40 mg PO HS 06/19/18 06/19/18 History loratadine [Claritin] 10 mg PO HS 06/19/18 06/19/18 History Past Med/Surg History Medical History Acid reflux Arthritis History of stroke 05/14/16--[facility] ED, transferred to [place]. NO RESIDUAL EFFECTS. --Brain MRI 05/18/16: Relatively large subacute infarct inferior right cerebellar hemisphere. 2 punctate subacute infarct right parietal convexity. Study is otherwise negative. Morbid obesity PFO (patent foramen ovale) Found on echo at [place] during w/u for ischemic stroke 2015. No evidence of afib or flutter seen with Holter so per neuro pt to continue ASA 81 and statin indefinitely for CVA prevention. Sinus problem CHRONIC SINUS DRAINAGE/MUCUS Surgical History History of arthroscopy of left knee History of colonoscopy History of hernia repair Family History Grandmother (Paternal) Family history of cancer Social History Preferred Language: Kiswahili Communication Ability: Effective Beliefs That Will Affect Care: None Current Living Situation: Family Feels Safe at Home: Yes Smoking Status: Never smoker Hx Alcohol Use: No Hx Substance Use: No Review of Systems All systems reviewed & are unremarkable except as noted in HPI & below Physical Exam Constitutional: WD/WN, vitals as above Eyes: PERRL, conjunctivae normal, anicteric sclerae ENMT: external ear and nose normal, oropharynx normal Neck: trachea midline, no thyromegaly Respiratory: normal respiratory effort Cardiovascular: RRR, no murmur, no edema Gastrointestinal (Abdomen): normal bowel sounds, soft, nontender, no hepatosplenomegaly Musculoskeletal: Physical examination of the right hip reveals decreased range of motion with flexion, internal and external rotation. There is significant groin pain with forced internal rotation of the hip his leg lengths are essentially equal. Psychiatric: A+Ox3, euthymic affect Results & Data Diagnostic Findings Radiographs of the right hip and pelvis demonstrate advanced osteoarthritis with joint space narrowing osteophyte formation and [id number] articulation.
[2018-08-23] MEDS ORDERED: ACETAMINOPHEN 500 MG TAB PO SCH (06:00)
[2018-08-23] MEDS ORDERED: CEFAZOLIN 3000MG 65 ML IV SCH (06:00)
[2018-08-23] MEDS ORDERED: LR 500ML BOLUS, THEN 15ML/HR IV SCH (06:00)
[2018-08-23] MEDS ORDERED: GABAPENTIN 300 MG x 2 PO SCH (06:00)
[2018-08-23] MEDS ORDERED: ROPIVACAINE 0.5% HCL/PF 150 MG, BUPIVACAINE 0.5% MPF 30 ML, EPINEPHrine 30MG/30ML (OR U... INFIL SCH (06:00)
[2018-08-23] MEDS ORDERED: FAMOTIDINE 20 MG TAB PO SCH (06:00)
[2018-08-23] MEDS ORDERED: TRANEXAMIC ACID 1,000 MG **IV Pre-op IV SCH (06:00)
[2018-08-23] MEDS ORDERED: LR 60ML/HR IV SCH (06:00)
[2018-08-23] MEDS ORDERED: BUPIVACAINE 0.5 % 5 MG/1 ML PF 10ML VIAL ONE (06:29)
[2018-08-23] MEDS ORDERED: TRANEXAMIC ACID 1,000 MG **IV Intra-op IV SCH (06:30)
[2018-08-23] MEDS ORDERED: MIDAZOLAM HCL 1 MG/ML 2ML VIAL ONE (06:33)
[2018-08-23] MEDS ORDERED: PROPOFOL IV EMULSION 10 MG/ML 20 ML VIAL IV ONE ×3 (06:33→10:07)
[2018-08-23] MEDS ORDERED: fentaNYL citrate 100 MCG/2 ML VIAL ONE (06:33)
--- NOTE | 2018-08-23 06:44 | History & Physical Bridge Note ---
Date of Service August 23, 2018 History & Physical Bridge Note I have examined the patient, reviewed the History & Physical and in the interval since the performance of the History & Physical I have noted the following changes of clinical significance: no changes noted
[2018-08-23] MEDS ORDERED: ORTHO JOINT ANESTHETIC ONE (07:01)
[2018-08-23] MEDS ORDERED: POVIDONE-IODINE OP SOLN 30 ML BTL ONE (07:01)
[2018-08-23] MEDS ORDERED: fentaNYL citrate 100 MCG/2 ML VIAL IV PRN (08:47)
[2018-08-23] MEDS ORDERED: ePHEDrine sulfate 50 MG/ML AMP IV PRN (08:47)
[2018-08-23] MEDS ORDERED: HYDROmorphone INJ 2 MG/ML SYR/VIAL IV PRN (08:47)
[2018-08-23] MEDS ORDERED: ATROPINE SULFATE 0.1 MG/ML 10ML SYR IV PRN (08:47)
--- NOTE | 2018-08-23 09:05 | Operative Report ---
Post Operative Report Pre & Post Diagnosis Operation Date: 08/23/18 07:15 Pre-Op Diagnosis: Right Hip Degenerative Joint Disease Post-Op Diagnosis: Right Hip Degenerative Joint Disease Procedure Operation Date: 08/23/18 07:15 Actual Procedures p Right Anterior Total Hip Arthroplasty(Right) - Merritt Rdz DO Surgeon Merritt Rdz DO Certified Indoor Environmentalist Merritt Marley PAC Estimated Blood Loss 250 Findings Consistent with Post-Op Diagnosis Specimens Right femoral head Complications none Disposition Disposition: Recovery Room Indications Humberto is a pleasant 58-year-old male who presented my office with complaints of chronic increasing right hip and groin pain. X-rays and clinical examination were diagnostic for primary osteoarthritis of the right hip. After failing conservative treatment, he elected to proceed with a right anterior total hip arthroplasty. Description of Procedure Implants used Biomet Taperloc total hip arthroplasty system with a size 17 high offset Taperloc stem, a 54 mm G7 cup with a 25mm screw, an E1 polyethylene liner, a 40 mm ceramic head with a -3 neck. Patient arrived at the hospital for the above procedure. They were seen in the preoperative holding area and the operative extremity was identified and signed. They were given a spinal anesthetic. They were given a preoperative antibiotic and TXA. They were taken back To the operating room and laid on the table in the supine position. The leg was brought out through a Puristst leg positioner. The hip was then prepped and draped in sterile fashion. A timeout was done and the patient in upper extremities properly identified. An anterior approach was used. Dissection was taken down through the fascia and the tensor muscle belly was retracted laterally and the rectus was retracted medially. The circumflex vessels were identified and ligated. The capsule was then incised and tagged for later repair. The femoral neck was then cut and the femoral head was removed. The acetabulum was exposed. Time was spent doing a complete circumferential labral release. Sequential reaming of the acetabulum up to a size 53 reamer was done. Final reamings were done under fluoroscopy to ensure appropriate version. A Biomet 54 mm G7 cup was then impacted into place. A single 25 mm screw was placed. The E1 polyethylene liner was then snapped into place. Surrounding soft tissues were then injected with 100 cc of an orthopedic pain control cocktail. The proximal femur was then exposed. Sequential broaching up to a size 17 broach was done. Off that broach a size 40 head with a -3 neck was trialed. The hip was reduced and fluoroscopic images showed anatomic alignment of the implants in acceptable length. The broach was removed. The final size 17 high offset Taperloc stem was then impacted into place. A ceramic 40 mm head with a -3 neck was then impacted into place in the hip was reduced. Final fluoroscopic images showed anatomic reduction of the hip. The capsule was then closed with #1 Vicryl suture. A dilute betadyne lavage was then done for 3 minutes. The joint was then irrigated with normal saline solution. The fascia was closed with #1 PDS suture. Skin was closed with 2-0 Vicryl, zander, and a Linda VAC dressing. The patient was then transferred to a hospital bed and taken to the post anesthesia care unit in stable condition. They tolerated the procedure well. I attest to the content of the Intraoperative Record and any orders documented therein. Any exceptions are noted below.
--- NOTE | 2018-08-23 10:11 | Anesthesiology Progress Note ---
Date of Service August 23, 2018 Anesthesia Post Procedure Vital Signs Vital Signs: Temp Pulse Pulse Resp BP Pulse Ox 08/23/18 09:55 70 15 127/81 97 08/23/18 09:40 36.4 C L 67 16 136/88 95 08/23/18 09:30 77 18 128/77 97 08/23/18 09:21 36.2 C L 92 H 16 105/74 94 08/23/18 06:02 37.0 C 77 20 141/94 H 92 Notes Mental Status: alert / awake / arousable and participated in evaluation Patient Amnestic to Procedure: Yes Nausea / Vomiting: adequately controlled Pain: adequately controlled Airway Patency, RR, SpO2: stable & adequate BP & HR: stable & adequate Hydration State: stable & adequate Neuraxial Anesthesia: was administered and sensory block is resolving Anesthetic Complications: no major complications apparent
[2018-08-23] MEDS ORDERED: ONDANSETRON INJ 2 MG/ML 2 ML VIAL IV PRN (10:15)
[2018-08-23] MEDS ORDERED: HYDROmorphone INJ 0.5 MG/0.5 ML SYR IV PRN (10:15)
[2018-08-23] MEDS ORDERED: MAGNESIUM HYDROXIDE SUSP 30 ML UDC PO PRN (10:15)
[2018-08-23] MEDS ORDERED: METOCLOPRAMIDE HCL INJ 5 MG/ML 2 ML VIAL IV PRN (10:15)
[2018-08-23] MEDS ORDERED: NALOXONE HCL 0.4 MG/1 ML VIAL/CARP IV PRN (10:15)
[2018-08-23] MEDS ORDERED: BISACODYL 10 MG SUPP PR PRN (10:15)
--- NOTE | 2018-08-23 10:33 | Fluoroscopy Report ---
FL hip RT 1V CLINICAL HISTORY: RT ANTERIOR HIP COMPARISON STUDY: Pelvis and right hip radiograph May 30, 2018. FLUOROSCOPY TIME: 34 seconds. FLUOROSCOPIC IMAGES: 2 FINDINGS: These images demonstrate expected findings during a total right hip arthroplasty. There is an acetabular screw. There are intact. No fracture is identified. There are no unexpected radiopaque foreign bodies. IMPRESSION: Expected findings during total right hip arthroplasty. Electronically signed by: Don Wood M.D. 08/23/2018 10:32 AM
--- NOTE | 2018-08-23 10:43 | XRay Report ---
SINGLE VIEW PELVIS; SINGLE VIEW RIGHT HIP CLINICAL HISTORY: Postoperative examination. FINDINGS: An AP portable view of the hips and pelvis with a crosstable lateral portable view of the r ight hip are obtained. A bipolar right hip arthroplasty is in near-anatomic alignment. A single corti renetta lag screw transfixes the acetabular cup. There is lucency identified in the lesser trochanter, po ssibly representing a nondistracted fracture. There are expected postoperative changes overlying the right hip including skin clips, subcutaneous gas,and soft tissue swelling. IMPRESSION: Expected postoperative findings status post right hip arthroplasty. Lucency through the l sandra trochanter may represent a nondistracted fracture. Electronically signed by: Mario Doshi M.D. 08/23/2018 10:42 AM
[2018-08-23] MEDS: SODIUM CHLORIDE 0.9% 1000ML 1,000 ML IV SCH ×2 (11:48→21:42)
[2018-08-23] MEDS: KETOROLAC 30 MG/ML VIAL IV SCH ×3 (11:51→23:39)
[2018-08-23] MEDS: ACETAMINOPHEN 500 MG TAB PO SCH ×2 (13:50→21:36)
[2018-08-23] MEDS: CEFAZOLIN 2000MG 2,000 MG/15 ML SYR IV SCH ×2 (15:55→23:38)
[2018-08-23] MEDS ORDERED: LORATADINE 10 MG TAB PO SCH (21:00)
[2018-08-23] MEDS ORDERED: ATORVASTATIN 40 MG TAB PO SCH (21:00)
[2018-08-23] MEDS ORDERED: SENNA 8.6 MG TAB PO SCH (21:00)
[2018-08-23] MEDS ORDERED: PANTOprazole 40 MG TAB PO SCH (21:00)
[2018-08-23] MEDS: ASPIRIN 81 MG ECTAB PO SCH (21:37)
[2018-08-23] MEDS: DOCUSATE SODIUM 100 MG CAP PO SCH (21:37)
[2018-08-23] MEDS: OXYCODONE HCL IR 5 MG TAB (IMMEDIATE RELEASE) PO PRN (21:42)
[2018-08-24] MEDS: KETOROLAC 30 MG/ML VIAL IV SCH ×2 (06:17→11:14)
[2018-08-24] MEDS: ACETAMINOPHEN 500 MG TAB PO SCH (06:18)
[2018-08-24] MEDS ORDERED: LIDOCAINE HCL 1% 20 ML VIAL ONE (06:46)
[2018-08-24] MEDS ORDERED: HEPARIN 100 UNIT/ML 5ML FLUSH ONE (06:46)
[2018-08-24 07:41] LABS: Basophils # (auto) 0.02 K/uL (0-0.2); Basophils % (auto) 0.2 %; Eosinophils # (auto) 0.05 K/uL (0-0.5); Eosinophils % (auto) 0.5 %; Hematocrit (blood only) 38.9 % (42-52); Hemoglobin 12.9 g/dL (14.0-18.0); Immature Granulocytes # (auto) 0.02 K/uL (0.00-0.02); Immature Granulocytes % (auto) 0.2 %; Lymphocytes % (auto) 11.7 %; Mean Corpuscular Hgb Conc 33.2 g/dL (32-36); Mean Corpuscular Volume 87.4 fL (80-100); Mean Platelet Volume 10.9 fL (7.4-10.4); Monocytes # (auto) 1.02 K/uL (0.11-0.59); Monocytes % (auto) 9.9 %; Neutrophils # (auto) 7.99 K/uL (1.4-6.5); Neutrophils % (auto) 77.5 %; Platelet Count 202 K/uL (130-400); RDW Coefficient of Variation 14.2 % (11.5-14.5); RDW Standard Deviation 45.6 fL (36.4-46.3); Red Blood Count 4.45 M/uL (4.7-6.1)
[2018-08-24 08:13] LABS: BUN Creatinine Ratio 18.3 (10-20); Calcium 8.3 mg/dl (8.5-10.1); Creatinine Clr Calc Pharmacy 130.1 ml/min; Est GFR (African American) 108.8; Est GFR (Non-African American) 93.9; Potassium 4.4 mmol/L (3.5-5.1)
[2018-08-24] MEDS: ASPIRIN 81 MG ECTAB PO SCH (08:13)
[2018-08-24] MEDS: DOCUSATE SODIUM 100 MG CAP PO SCH (08:13)
--- NOTE | 2018-08-24 08:23 | Anesthesiology Progress Note ---
Date of Service August 24, 2018 Anesthesia Post Procedure Vital Signs Vital Signs: Temp Pulse Pulse Resp BP Pulse Ox 08/24/18 07:29 36.7 C 67 20 124/77 96 08/24/18 03:13 36.6 C 78 22 110/78 99 08/23/18 23:16 36.5 C 78 20 120/74 94 08/23/18 22:16 132/82 08/23/18 19:59 37.0 C 82 18 153/82 H 94 08/23/18 15:31 36.5 C 85 18 167/94 H 94 08/23/18 14:16 58 L 18 147/83 H 93 08/23/18 13:08 91 H 18 147/93 H 96 08/23/18 12:05 82 16 136/86 93 08/23/18 11:05 75 18 141/94 H 98 08/23/18 10:31 68 18 165/97 H 96 08/23/18 10:05 36.4 C L 68 17 130/82 97 08/23/18 09:55 70 15 127/81 97 08/23/18 09:40 36.4 C L 67 16 136/88 95 08/23/18 09:30 77 18 128/77 97 08/23/18 09:21 36.2 C L 92 H 16 105/74 94 Pain Intensity Right Hip: Pain Intensity: 2 Notes Mental Status: alert / awake / arousable and participated in evaluation Nausea / Vomiting: adequately controlled Pain: adequately controlled Airway Patency, RR, SpO2: stable & adequate BP & HR: stable & adequate Hydration State: stable & adequate Neuraxial Anesthesia: sensory block resolved Anesthetic Complications: Pt Satisfied with anesthetic care
--- NOTE | 2018-08-24 08:36 | Orthopedic Progress Note ---
Date of Service August 24, 2018 Assessment & Plan (1) Osteoarthritis of right hip: Overall he is doing very well. Is not having any pain in the right hip. He is already been up and ambulating. He is on aspirin for DVT prophylaxis. He will be seen by physical therapy today for ambulation and step training. As long as he is doing well he can go home later this afternoon. He will follow-up with orthopedics in 2 weeks. Present on Admission?: Yes Subjective Humberto was seen and examined at bedside this morning. Overall is doing very well. Is not having any pain in the right hip. He is already been up and ambulating into the hallways. He has no complaints. Physical Exam Vital Signs (Past 24 Hours): Last Vital Signs Temp 36.7 C 08/24/18 08:16 Pulse 67 08/24/18 08:16 Resp 20 08/24/18 08:16 BP 124/77 08/24/18 08:16 Pulse Ox 96 08/24/18 08:16 Musculoskeletal: On physical examination of the right hip, the Linda VAC dressing is to suction. His leg lengths are equal. He has active dorsiflexion and plantarflexion of his right ankle. Sensation is intact throughout. Results & Data Laboratory Results H & H 06/23/18 08/24/18 Range/Units 11:57 06:50 Hgb 14.6 12.9 L (14.0-18.0) g/dL Hct 43.4 38.9 L (42-52) % Coagulation 06/23/18 Range/Units 11:57 INR 1.0 (0.9-1.1) Diagnostic Findings Postoperative x-rays of the right hip show the prosthesis to be in anatomic alignment without any evidence of fracture, dislocation, or loosening. The radiologist did point to a small line on the x-ray but I do not believe that to be a fracture line.
--- NOTE | 2018-08-24 08:37 | Discharge Summary ---
Date of Service August 24, 2018 Admission HPI Per Admitting Provider Humberto is a very pleasant 58-year-old male who is been dealing with a several year history of increasing right hip and groin pain. X-rays and clinical examination were diagnostic for primary osteoarthritis of the right hip. After failing conservative treatment, he has elected to proceed with a right anterior total hip arthroplasty. Specialty Data Orthopedic H & H 06/23/18 08/24/18 Range/Units 11:57 06:50 Hgb 14.6 12.9 L (14.0-18.0) g/dL Hct 43.4 38.9 L (42-52) % Coagulation 06/23/18 Range/Units 11:57 INR 1.0 (0.9-1.1) Discharge Data Consultations 08/24/18 08:00 Consult Case Management - Discharge Planning Routine Procedures Performed Operation Date: 08/23/18 07:15 Actual Procedures p Right Anterior Total Hip Arthroplasty(Right) - Merritt Rdz DO Hospital Course (1) Osteoarthritis of right hip: On August 23, 2018 Humberto arrived at [facility] and underwent a right anterior total hip arthroplasty without complication. He had a spinal anesthetic. Postoperatively he was started on aspirin for DVT prophylaxis and discharged to general orthopedic floors. His hospital course was uneventful. On postop day #1 his H&H was stable and his pain was well controlled. He was already ambulated around the hallways with the nursing staff. He was seen by physical therapy to do further ambulation and step training. He was then discharged to home with home physical therapy. He will follow-up with orthopedics in 2 weeks. Discharge Instructions Home Medications Medication Instructions Recorded Confirmed Omeprazole 20 mg PO QPM 06/19/18 08/23/18 aspirin [Aspir-81] 1 tab PO HS 06/19/18 08/23/18 atorvastatin 40 mg PO HS 06/19/18 08/23/18 loratadine [Claritin] 10 mg PO HS 06/19/18 08/23/18 Previous Rx's Medication Instructions Recorded aspirin [Ecotrin Low Strength] 81 mg PO BID #84 tab 08/24/18 oxycodone 5 - 10 mg PO Q4H PRN #40 tab 08/24/18
[2018-08-24] MEDS ORDERED: MULTIVITAMIN TAB PO SCH (09:00)
[2018-08-24] MEDS: OXYCODONE HCL IR 5 MG TAB (IMMEDIATE RELEASE) PO PRN (11:13)
== END 2018-08-24 13:26 | disposition home health service (06) | DRG 470 ==
LOC: ASU 05:05 → 3E 09:08

== ENCOUNTER 2021-03-14 03:28 | Observation (INO) ==
[2021-03-14] MEDS ORDERED: SODIUM CHLORIDE 0.9% 1000ML 1,000 ML IV STA (03:45)
[2021-03-14] MEDS ORDERED: ONDANSETRON INJ 2 MG/ML 2 ML VIAL IV STA (03:45)
[2021-03-14] MEDS ORDERED: MoRPHine SULFATE 4 MG/ML 1 ML CARP\\VIAL IV STA (03:45)
[2021-03-14] MEDS ORDERED: OPTIRAY 320 100ml IV ONE (03:52)
[2021-03-14 04:08] LABS: iSTAT Creatinine 1.1 mg/dl (0.6-1.3); iSTAT Hemoglobin 14.6 g/dl (14.0-18.0); iSTAT Ionized Calcium 1.23 mmol/l (1.12-1.32)
[2021-03-14 04:09] LABS: Basophils # (auto) 0.03 K/uL (0-0.2); Basophils % (auto) 0.4 %; Eosinophils # (auto) 0.28 K/uL (0-0.5); Eosinophils % (auto) 3.4 %; Hematocrit (blood only) 43.2 % (42-52); Hemoglobin 14.7 g/dL (14.0-18.0); Immature Granulocytes # (auto) 0.01 K/uL (0.00-0.02); Immature Granulocytes % (auto) 0.1 %; Lymphocytes # (auto) 1.32 K/uL (1.2-3.4); Mean Corpuscular Hemoglobin 28.9 pg (25-34); Mean Platelet Volume 10.6 fL (7.4-10.4); Monocytes # (auto) 0.69 K/uL (0.11-0.59); Monocytes % (auto) 8.3 %; Neutrophils # (auto) 5.94 K/uL (1.4-6.5); Neutrophils % (auto) 71.8 %; Platelet Count 245 K/uL (130-400); RDW Standard Deviation 43.6 fL (36.4-46.3); Red Blood Count 5.08 M/uL (4.7-6.1); White Blood Count 8.27 K/uL (4.8-10.8)
[2021-03-14] MEDS ORDERED: LORazepam 2 MG/4 ML VIAL ONE (04:19)
[2021-03-14] MEDS ORDERED: LORazepam 1 MG/2 ML VIAL IV STA ×2 (04:21)
--- NOTE | 2021-03-14 04:28 | Emergency Department Note ---
History of Present Illness General Chief complaint: Abdominal Pain Stated complaint: abd pain Time Seen by Provider: 03/14/21 03:40 History of Present Illness Maximum Pain Intensity: 9 This 60-year-old presents to the ER complaining of epigastric right upper quadrant pain Location: Epigastric right upper quadrant pain Quality: Painful Severity: Severe Duration: Yesterday Timing: Started on 4 PM Context: Patient was concerned and came in Modifying factors: better with nothing; worse with activity Patient denies chest pain, dyspnea, vomiting, diarrhea, urinary symptoms. He still has his gallbladder. Home Medications Medication Instructions Recorded Confirmed Type loratadine 10 mg tablet (Claritin) 10 mg PO HS 06/19/18 10/03/20 History aspirin 81 mg tablet,delayed 81 mg PO HS 05/20/20 10/03/20 History release (Ecotrin Low Strength) multivitamin 1 tab PO QAM 09/03/20 10/03/20 History ondansetron HCl 4 mg tablet 4 mg PO Q8H PRN #10 tab 10/02/20 10/03/20 Rx (Zofran) oxycodone-acetaminophen 5 mg-325 1 tab PO Q6H PRN #60 tab 10/02/20 10/03/20 Rx mg tablet (Percocet) atorvastatin 40 mg tablet 40 mg PO HS #30 tab 01/05/21 Rx omeprazole 20 mg capsule,delayed 20 mg PO HS #30 cap 01/05/21 Rx release amoxicillin 500 mg tablet 2,000 mg PO ONCE PRN #4 tab 01/19/21 Rx Allergies Allergy/AdvReac Type Severity Reaction Status Date / Time No Known Allergies Allergy Verified 10/03/20 07:45 Past Med/Surg History Medical History Acid reflux Well controlled and stable 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 Repeat ECHO in 2018 showed no atrial septal defect. Per cardio note on 08/06/19- PFO does not require yearly cardio follow up. Continue statin and ASA Sinus problem Chronic sinus drainage/mucus - mild - stable - not worsening Surgical History History of arthroscopy left knee 1985 d/t injury History of arthroscopy of left knee History of colonoscopy History of herniorrhaphy umbilical History of right hip replacement History of umbilical hernia repair Family History Grandmother (Paternal) Family history of cancer Father Hypertension Denies family history of Ovarian cancer Prostate cancer Myocardial infarction Breast cancer Colorectal cancer Social History Smoking Status: Never smoker Second Hand Exposure: No; Hx Alcohol Use: No Hx Substance Use: No Preferred Language: Polish Communication Ability: Effective Marketing Automation Specialist Required: No Beliefs That Will Affect Care: None marital status: Current Living Situation: Spouse Feels Safe at Home: Yes Assistive Devices: Glasses Review of Systems A total of 10 systems reviewed and were otherwise negative Physical Exam Vital Signs Vital Signs - 24 hr 03/14/21 03:37 03/14/21 04:46 Temperature 36.9 C Temperature Source Oral Pulse Rate 73 83 Respiratory Rate 18 18 Respiratory Depth Normal Blood Pressure 150/87 H Blood Pressure Mean 108 Pulse Oximetry 95 94 Oxygen Delivery Method Room Air Nasal Cannula Oxygen Flow Rate 3 Sepsis Recent Fever Within 48 Hours No Sepsis New/Unexplained Change in Mental Status N/A Sepsis Action Taken by Nursing No Action Required VITALS: Vitals are noted on the nurse's note and reviewed by myself. Vital signs stable. GENERAL: Pleasant male who appears in pain, in no acute distress, nondiaphoretic, well-developed well-nourished. SKIN: The skin was without rashes, erythema, edema, or bruising. There is no tenting of the skin. Capillary reflex less than 2 seconds. HEAD: Normocephalic atraumatic. EARS: External auditory canals clear, EYES: Pupils equal round and reactive to light and accommodation. Conjunctivae without injection, sclerae without icterus. Extraocular movements intact. NOSE: Patent, turbinates without inflammation or discharge. MOUTH: Mucous membranes moist. Pharynx without erythema or exudate. Uvula midline. Airway patent. Tongue does not deviate. NECK: Supple without nuchal rigidity. No lymphadenopathy. No thyromegaly. Cervical spine is nontender. No JVD. HEART: Regular rate and rhythm LUNGS: Clear to auscultation bilaterally without wheezes, rales or rhonchi. No retractions or accessory muscle use. ABDOMEN: Positive bowel sounds x 4. Normal tympanic percussion. Soft, tender to palpation epigastric right upper quadrant pain, without masses or organomegaly. No palpable pulsating mass, No guarding or rebound tenderness. No CVA tenderness MUSCULOSKELETAL: No muscle atrophy, erythema, or edema noted. NEURO: Patient was alert and oriented to person place and time. Normal sensation to light and sharp touch. No focal neurological deficits. Course Administered Medications Discontinued Medications Sodium Chloride (Nss 1000ml) 1,000 mls @ 999 mls/hr IV .Q1H1M STA Stop: 03/14/21 04:45 Last Infusion: 03/14/21 05:12 Dose: 0 mls/hr Documented by: [id number] Admin: 03/14/21 04:04 Dose: 999 mls/hr Documented by: [id number] Lorazepam (Ativan) 1 mg in 2 mls @ 2 mls/min IV NOW STA Stop: 03/14/21 04:22 Last Admin: 03/14/21 04:24 Dose: Not Given Documented by: [id number] Ioversol (Optiray 320 100ml) 94 ml IV ONCE ONE Stop: 03/14/21 03:53 Last Admin: 03/14/21 03:53 Dose: 94 ml Documented by: [id number] Lorazepam (Lorazepam 2 Mg/4 Ml Vial) Confirm Administered Dose 2 mg .ROUTE .STK- MED ONE Stop: 03/14/21 04:20 Last Admin: 03/14/21 04:24 Dose: 1 mg Documented by: [id number] Morphine Sulfate (Morphine Sulfate 4 Mg/Ml 1 Ml Carp\Vial) 4 mg IV NOW STA Stop: 03/14/21 03:46 Last Admin: 03/14/21 04:05 Dose: 4 mg Documented by: [id number] Ondansetron HCl (Ondansetron Inj 2 Mg/Ml 2 Ml Vial) 4 mg IV NOW STA Stop: 03/14/21 03:46 Last Admin: 03/14/21 04:05 Dose: 4 mg Documented by: [id number] Medical Decision Making Medical Records Attestation: I reviewed the patient's medical records. Home Medications Current Medication List: was personally reviewed by me Laboratory Data Attestation: I reviewed the patient's lab results. Result diagrams: 03/14/21 03:50 03/14/21 03:50 Lab Results 03/14/21 03/14/21 03/14/21 Range/Units 03:50 03:50 03:55 WBC 8.27 (4.8-10.8) K/uL RBC 5.08 (4.7-6.1) M/uL Hgb 14.7 (14.0-18.0) g/dL POC Hgb 14.6 (14.0-18.0) g/dl Hct 43.2 (42-52) % POC Hct 43 (42-52) % MCV 85.0 (80-100) fL MCH 28.9 (25-34) pg MCHC 34.0 (32-36) g/dL RDW Std Deviation 43.6 (36.4-46.3) fL RDW Coeff of [place]re[place] 14.0 (11.5-14.5) % Plt Count 245 (130-400) K/uL MPV 10.6 H (7.4-10.4) fL Immature Gran % (Auto) 0.1 % Neut % (Auto) 71.8 % Lymph % (Auto) 16.0 % [place] % (Auto) 8.3 % Eos % (Auto) 3.4 % Baso % (Auto) 0.4 % Neut # (Auto) 5.94 (1.4-6.5) K/uL Lymph # (Auto) 1.32 (1.2-3.4) K/uL [place] # (Auto) 0.69 H (0.11-0.59) K/uL Eos # (Auto) 0.28 (0-0.5) K/uL Baso # (Auto) 0.03 (0-0.2) K/uL Immature Gran # (Auto) 0.01 (0.00-0.02) K/uL POC Sodium 142 (135-144) mmol/L Sodium 139 (136-145) mmol/L POC Potassium 4.0 (3.3-5.0) mmol/L Potassium 3.9 (3.5-5.1) mmol/L POC Chloride 104 (101-112) mmol/L Chloride 110 H (98-107) mmol/L Carbon Dioxide 28 (21-32) mmol/L POC Total CO2 24 (24-31) mmol/L Anion Gap 1.0 L (3-11) POC Anion Gap 19.0 (16-25) mmol/L POC BUN 21 H (7-18) mg/dl BUN 22 H (7-18) mg/dl Creatinine 1.09 (0.6-1.4) mg/dl POC Creatinine 1.1 (0.6-1.3) mg/dl Est Cr Clr Drug Dosing 104.3 ml/min Est GFR ( Amer) 86.3 ml/min Est GFR (Non-Af Amer) 74.4 ml/min BUN/Creatinine Ratio 20.3 H (10-20) Glucose 110 H (70-99) mg/dl POC Glucose (other) 113 H (70-99) mg/dl Calcium 9.0 (8.5-10.1) mg/dl POC Ioniz Calcium Ad 1.23 (1.12-1.32) mmol/l Total Bilirubin 1.1 H (0.2-1) mg/dl AST 17 (15-37) U/L ALT 22 (12-78) U/L Alkaline Phosphatase 86 (45-117) U/L Troponin I < 0.015 (0-0.045) ng/ml Total Protein 6.8 (6.4-8.2) gm/dl Albumin 3.4 (3.4-5.0) gm/dl Globulin 3.4 (2.5-4.0) gm/dl Albumin/Globulin Ratio 1.0 (0.9-2) Lipase 255 (73-393) U/L Imaging Data Attestation: I personally reviewed and interpreted this imaging study as follows: MDM Narrative Prior records/ancillary studies reviewed. Triage Nursing notes reviewed. Additional history obtained from family. The patient's history was concerning for abdominal pain. Differential diagnosis: Etiologies such as appendicitis, diverticulitis, PUD, biliary pathology, UTI, pancreatitis, obstruction, mesenteric ischemia, aortic pathology, infections, inflammatory bowel disease, renal colic, as well as others were entertained. Physical examination findings: As above. ER treatment provided: An order was placed for continuous cardiac monitoring. The monitor shows a rate of 60-100 with a sinus rhythm. Zofran, morphine, IV fluids Emergent FAST POCUS performed by me. Subxiphoid view and parasternal long shows no pericardial effusion or tamponade. Abdominal views demonstrate no free fluid in the hepatorenal space, splenorenal space, or around the bladder. No free fluid. Normal FAST per my interpretation. On reassessment the patient felt better. Diagnostics interpreted by me: ECG: Ordered for abdominal pain EKG: Normal sinus, normal intervals, left axis deviation, no acute ST-T wave changes. Impression normal sinus of the left axis deviation interpreted by myself I think arrhythmia is unlikely. EKG shows normal sinus rhythm with no interval abnormalities such as QT prolongation or WPW. There are no findings to suggest Brugada syndrome. Cardiac monitoring in the emergency department reveals no tachycardic or bradycardic dysrhythmia. Hypertrophic cardiomyopathy was considered but there are no clear historical elements pointing toward this. EKG is not suggestive. The QRS voltage is not extremely large and there are no suggestive Q waves. The labs revealed negative troponin No leukocytosis Imaging studies: Preliminary Findings Only See Final Report For Complete Findings CT ABDOMEN & PELVIS With Contrast: Simple appearing bilateral renal cysts are present, no follow-up is needed. The remaining solid organs are within normal limits. Cholelithiasis. No obstruction. Normal appendix. No fracture. Incidentally noted lipoma of the musculature of the lateral anterior abdominal wall. Radiologist: Adelina Ashby MD Consultation: A consultation was placed with the surgical PADamion. The case was discussed and diagnostics were reviewed. The patient was evaluated in the ER for further treatment. Surgery will take the patient to the OR. Exam and history seem consistent with cholelithiasis concerning for cholecystitis. Surgery was consulted. They will evaluate. Negative troponin. No acute findings on EKG. No leukocytosis. Normal LFTs. Normal lipase. By the evaluation outlined above emergent etiologies such as appendicitis, diverticulitis, PUD, UTI, pancreatitis, obstruction, mesenteric ischemia, aortic pathology, inflammatory bowel disease, renal colic, as well as others were deemed relatively unlikely. The pt informed about the findings as listed above. All questions were answered and pleased with the treatment. The chart was completed utilizing [employer] recognition software. Grammatical errors, random word insertions, pronoun errors, and incomplete sentences are an occassional consequence of this system due to software limitations, ambient noise, and hardware issues. Any formal questions or concerns about the content, text, or information contained within the body of t his dictation should be directly addressed to the physician ice cream freezer assistant for clarification. Impression & Plan Abdominal pain in male, Cholelithiasis Discharge Plan Visit Data Chief Complaint: Abdominal Pain Stated Complaint: abd pain ED Provider: Remi Kaye ED Midlevel Provider: Eusebia Nieves Discharge Problem: Abdominal pain in male, Cholelithiasis Patient Disposition: Being Evaluated by Surgeon Condition: Good Forms Stand Alone Forms: My [employer] Prescriptions Prescriptions: No Action oxycodone-acetaminophen [Percocet] 5-325 mg tablet 1 tab PO Q6H PRN (Reason: pain) Qty: 60 RF: 0 ondansetron HCl [Zofran] 4 mg tablet 4 mg PO Q8H PRN (Reason: nausea and vomiting) Qty: 10 RF: 0 atorvastatin 40 mg tablet 40 mg PO HS Qty: 30 RF: 11 omeprazole 20 mg capsule,delayed release(DR/EC) 20 mg PO HS Qty: 30 RF: 11 amoxicillin 500 mg tablet 2,000 mg PO ONCE PRN (Reason: prophylaxis) Qty: 4 RF: 2 loratadine [Claritin] 10 mg Tablet 10 mg PO HS RF: 0 multivitamin Tablet 1 tab PO QAM RF: 0 aspirin [Ecotrin Low Strength] 81 mg tablet,delayed release (DR/EC) 81 mg PO HS RF: 0 Referrals Referrals: Vinayak Ames DO [Primary Care Provider] -
[2021-03-14 04:32] LABS: Alanine Aminotransferase 22 U/L (12-78); Albumin Level 3.4 gm/dl (3.4-5.0); Aspartate Aminotransferase 17 U/L (15-37); BUN Creatinine Ratio 20.3 (10-20); Blood Urea Nitrogen 22 mg/dl (7-18); Carbon Dioxide 28 mmol/L (21-32); Chloride 110 mmol/L (98-107); Creatinine Clr Calc Pharmacy 104.3 ml/min; Est GFR (African American) 86.3 ml/min; Est GFR (Non-African American) 74.4 ml/min; Glucose 110 mg/dl (70-99); Lipase 255 U/L (73-393); Potassium 3.9 mmol/L (3.5-5.1); Sodium 139 mmol/L (136-145)
[2021-03-14 04:36] LABS: Alkaline Phosphatase 86 U/L (45-117); Bilirubin,Total 1.1 mg/dl (0.2-1); Globulin 3.4 gm/dl (2.5-4.0); Total Protein 6.8 gm/dl (6.4-8.2); Troponin I < 0.015 ng/ml (0-0.045)
--- NOTE | 2021-03-14 06:40 | History & Physical Report ---
Date of Service March 14, 2021 Assessment & Plan (1) Cholelithiasis: Plan: Due to the patient's imaging and clinical presentation we will plan on laparoscopic, possible open cholecystectomy today. Keep patient n.p.o. until after surgery Await Covid test results We will administer antibiotics. Cefoxitin has been ordered Provide analgesics Provide antiemetics Additional recommendations were made based on patient's operative findings and his clinical course postoperatively History of Present Illness Chief Complaint: Abdominal pain Primary Care Provider: Vinayak Ames DO This is a 60-year-old male who presented [facility] secondary to abdominal pain. Patient notes that pain began approximately 4:00 PM yesterday before eating dinner. He said the pain did not radiate he did not identify any palliative or provocative factors. He denies any nausea or vomiting. He denies any fever shakes or chills. He notes that several months ago he did have similar pain that was not as severe and self resolved and today's pain was so severe that he had to present to the emergency department. He notes his last oral intake was approximate 11:00 PM last night. Patient does report prior abdominal surgeries as he had an inguinal and an umbilical herniorrhaphy. In the emergency department patient had labs and diagnostic which I independently reviewed. CBC reveals white blood cell count, hemoglobin, hematocrit, and platelet count are all within normal range. Chemistry profile showed sodium, potassium, and creatinine were within normal range. There were no significant elevation of patient's LFTs or lipase. A Covid test has been ordered and is pending. An EKG showed normal sinus rhythm without ischemic changes. A chest x-ray did not show any evidence of pneumonia. CT scan of the abdomen showed the patient had the presence of gallstones. A gallbladder ultrasound has been ordered and is pending. The time of my interview the patient was resting comfortably in bed. He was in no distress but did have right upper quadrant pain with palpation. Allergies Allergy/AdvReac Type Severity Reaction Status Date / Time No Known Allergies Allergy Verified 10/03/20 07:45 Home Medications Medication Instructions Recorded Confirmed Type loratadine 10 mg tablet (Claritin) 10 mg PO HS 06/19/18 10/03/20 History aspirin 81 mg tablet,delayed 81 mg PO HS 05/20/20 10/03/20 History release (Ecotrin Low Strength) multivitamin 1 tab PO QAM 09/03/20 10/03/20 History ondansetron HCl 4 mg tablet 4 mg PO Q8H PRN #10 tab 10/02/20 10/03/20 Rx (Zofran) oxycodone-acetaminophen 5 mg-325 1 tab PO Q6H PRN #60 tab 10/02/20 10/03/20 Rx mg tablet (Percocet) atorvastatin 40 mg tablet 40 mg PO HS #30 tab 01/05/21 Rx omeprazole 20 mg capsule,delayed 20 mg PO HS #30 cap 01/05/21 Rx release amoxicillin 500 mg tablet 2,000 mg PO ONCE PRN #4 tab 01/19/21 Rx Past Med/Surg History Medical History Acid reflux Well controlled and stable History of chemical exposure chemical pneumonitis (silo gas poisoning at age 16) History of stroke 2015- no residual effects Hypercholesterolemia On statin Impaired fasting glucose Hgb A1C 6.1 in December 2019 PFO (patent foramen ovale) Found on echo at [place] during w/u for ischemic stroke 2015. Repeat ECHO in 2018 showed no atrial septal defect. Per cardio note on 08/06/19- PFO does not require yearly cardio follow up. Continue statin and ASA Sinus problem Chronic sinus drainage/mucus - mild - stable - not worsening Surgical History History of arthroscopy left knee 1985 d/t injury History of arthroscopy of left knee History of colonoscopy History of herniorrhaphy umbilical History of right hip replacement History of umbilical hernia repair Family History Grandmother (Paternal) Family history of cancer Father Hypertension Denies family history of Ovarian cancer Prostate cancer Myocardial infarction Breast cancer Colorectal cancer Social History Smoking Status: Never smoker Second Hand Exposure: No; Hx Alcohol Use: No Hx Substance Use: No Preferred Language: [place] Citizen Communication Ability: Effective Music Arranger Required: No Beliefs That Will Affect Care: None marital status: Current Living Situation: Spouse Feels Safe at Home: Yes Assistive Devices: Glasses Review of Systems Constitutional: no fever and no chills Eyes: no diplopia Ear, Nose, Mouth, Throat: no ear pain Respiratory: no cough and no dyspnea Cardiovascular: no chest pain Gastrointestinal: + abdominal pain; no nausea and no vomiting Genitourinary: no dysuria Musculoskeletal: no back pain Integumentary: no rash Neurologic: no localized weakness Physical Exam Constitutional: well developed, well nourished and + obese; no acute distress Eyes: no conjunctival abnormality ENMT: Ears: no hearing impairment and no external ear abnormality Mouth: no oropharynx abnormality Neck: trachea midline Respiratory: normal respiratory effort, lungs clear to auscultation Cardiovascular: Rate/Rhythm: regular rate and regular rhythm Gastrointestinal (Abdomen): Patient's abdomen is rotund with positive bowel sounds. It is soft and nondistended. Patient did have pain with palpation in the right upper quadrant with a positive Boyce sign Musculoskeletal: No calf tenderness Skin: no rashes Neurologic: moves all extremities Results & Data Results & Data ([facility]) Vital Signs (Past 12 Hours) Vital Signs Temp Pulse Resp BP Pulse Ox 03/14/21 04:46 83 18 94 03/14/21 03:37 36.9 C 73 18 150/87 H 95 Supervising Physician Co-Signing Physician Notes As per Damion Lujan physician political science research assistant The patient no real past history of gallbladder dysfunction except the most recent attack Still has right upper quadrant with deep palpation guarding At this point I would consider proceeding with laparoscopic cholecystectomy cholangiogram possible open (significant other at the bedside is aware of her procedures since she had this done ) I recommended proceeding with laparoscopic cholecystectomy at this time and patient were agreeable to it risk and complication explained to them including bleeding infection converting an open procedure and they would like to stay to proceed Antibiotics on board permit has been signed waiting for the OR PG Care Time/CCT Total # of Minutes Spent Total Time Spent with Patient: Total time spent is greater than 50% in coordination of care (as documented) at patient's floor/unit and/or counseling patient: Coding Level of Care Code INT OBSERVATION CARE 70M LVL 3 Diagnoses Cholelithiasis K80.20
[2021-03-14] MEDS ORDERED: cefOXitin 2,000 MG/60 ML BAG IV STA (06:52)
--- NOTE | 2021-03-14 07:19 | Anesthesiology Consultation ---
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 History Surgery Operation Date: 03/14/21 10:00 Proposed Procedures p Laparoscopic Cholecystectomy - Kameron Ponce MD, FACS Height/Weight Height: 5 ft 11 in Weight: 136.7 kg Allergies Allergy/AdvReac Type Severity Reaction Status Date / Time No Known Allergies Allergy Verified 10/03/20 07:45 Medications Home Medications Medication Instructions Recorded Confirmed Last Taken loratadine 10 mg tablet (Claritin) 10 mg PO HS 06/19/18 10/03/20 10/02/20 21:00 aspirin 81 mg tablet,delayed 81 mg PO HS 05/20/20 10/03/20 10/02/20 21:00 release (Ecotrin Low Strength) multivitamin 1 tab PO QAM 09/03/20 10/03/20 Unknown ondansetron HCl 4 mg tablet 4 mg PO Q8H PRN #10 tab 10/02/20 10/03/20 Unknown (Zofran) oxycodone-acetaminophen 5 mg-325 1 tab PO Q6H PRN #60 tab 10/02/20 10/03/20 Unknown mg tablet (Percocet) atorvastatin 40 mg tablet 40 mg PO HS #30 tab 01/05/21 Unknown omeprazole 20 mg capsule,delayed 20 mg PO HS #30 cap 01/05/21 Unknown release amoxicillin 500 mg tablet 2,000 mg PO ONCE PRN #4 tab 01/19/21 Unknown Past Medical History Medical History Acid reflux Well controlled and stable 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 Repeat ECHO in 2018 showed no atrial septal defect. Per cardio note on 08/06/19- PFO does not require yearly cardio follow up. Continue statin and ASA Sinus problem Chronic sinus drainage/mucus - mild - stable - not worsening Past Family History Family History Grandmother (Paternal) Family history of cancer Father Hypertension Denies family history of Ovarian cancer Prostate cancer Myocardial infarction Breast cancer Colorectal cancer Past Surgical History Surgical History History of arthroscopy left knee 1985 d/t injury History of arthroscopy of left knee History of colonoscopy History of herniorrhaphy umbilical History of right hip replacement History of umbilical hernia repair Social History Smoking Status: Never smoker Hx Alcohol Use: No Hx Substance Use: No substance use type: does not use Physical Exam Vital Signs Last Vital Signs Temp 98.4 F 03/14/21 03:37 Pulse 83 03/14/21 04:46 Resp 18 03/14/21 04:46 BP 150/87 H 03/14/21 03:37 Pulse Ox 94 03/14/21 04:46 Testing Laboratory Results 03/14/21 03:50 03/14/21 03:50 03/14/21 03:55 POC Glucose (other) 113 H Electrocardiogram Date: 03/14/21 Normal sinus rhythm, rate 60 bpm Left axis deviation Abnormal ECG When compared with ECG of 27-MAY-2020 10:04, No significant change was found Echocardiogram Date: 07/21/18 Normal biventricular systolic function Normal chamber dimensions No evidence of atrial septal defect Presence of a PFO not assessed No significant valvular abnormalities Moderate concentric LVH Grade 1 LV diastolic dysfunction Borderline aortic root dilatation
--- NOTE | 2021-03-14 07:52 | Ultrasound Report ---
US gallbladder CLINICAL INDICATION: Upper quadrant abdominal pain. TECHNIQUE: Multiple real-time sonographic images of the right upper quadrant were obtained. Comparison: None available at the time of this dictation. FINDINGS: The liver is diffusely homogenous with normal contour and echogenicity. No focal mass lesions are se en. No intrahepatic ductal dilatation is seen. Low level internal echoes are identified layering dependently within the gallbladder, which is consistent with gallbladder sludge. The gallbladder wall is not thickened, measuring 2 mm. There is no pericholecystic fluid present. The common duct is norm al in caliber, measuring 6 mm at the level of the hepatic artery. 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 The visualized portions of the pancreas appear normal. The right kidney shows normal echogenicity, cortical thickness and renal contour. A 3.3 cm simple cys t is seen. The right kidney shows no evidence of hydronephrosis or mass. No ascites or free fluid is seen in Meadows's pouch. IMPRESSION: Gallbladder sludge versus tiny stones. No evidence of acute cholecystitis. Negative sonographic Mandeep y's sign. ACT 112: Negative or not required by law. Electronically signed by: Louis Doe M.D. 03/14/2021 7:50 AM
[2021-03-14] MEDS ORDERED: ATROPINE SULFATE 0.1 MG/ML 10ML SYR IV PRN (08:45)
[2021-03-14] MEDS ORDERED: ONDANSETRON INJ 2 MG/ML 2 ML VIAL IV PRN ×2 (08:45→11:40)
[2021-03-14] MEDS ORDERED: ePHEDrine sulfate 50 MG/ML AMP IV PRN (08:45)
[2021-03-14] MEDS ORDERED: fentaNYL citrate 100 MCG/2 ML VIAL IV PRN (08:45)
--- NOTE | 2021-03-14 08:58 | CT Scan Report ---
ABDOMEN AND PELVIS CT WITH IV CONTRAST CT DOSE: 1779.63 mGy.cm HISTORY: mid right abd pain TECHNIQUE: Multiaxial CT images of the abdomen and pelvis were performed following the use of intrave nous contrast. A dose lowering technique was utilized adhering to the principles of ALARA. COMPARISON STUDY: Abdomen and pelvis CT 04/23/2017. FINDINGS: Stable 4 mm nodule within the left lower lobe on image 4. This is likely benign. There are mild dependent changes seen at the lung bases. No pneumoperitoneum. No pneumatosis. A right total hip arthroplasty. Bilateral L5 spondylolysis. A few punctate stones within the gallbladder. No gallbladd er wall thickening. The liver, spleen, adrenal glands, and pancreas are unremarkable. Multiple bilate ral renal hypodense lesions are again noted. These likely represent cysts. There is an additional exo phytic 7 mm hypodense lesion within the right kidney posteriorly. This is technically too small to ch aracterize but remains stable compared to 2017 examination and therefore also favors a cyst. There ar e a few additional subcentimeter bilateral renal hypodense lesions which are technically too small to characterize. No ureteral stones. No hydronephrosis. The bladder is partially obscured by the metall ic artifact from the right hip prosthesis but appears unremarkable. The main portal vein is patent. N ormal caliber abdominal aorta. No retroperitoneal lymphadenopathy. Prior umbilical hernia repair is n oted. Left lower quadrant intramuscular lipoma remains stable. No pelvic free fluid. Colonic divertic ulosis. Equivocal minimal inflammatory change adjacent to the mid sigmoid colon on image 356. This co uld represent a developing acute diverticulitis. No evidence for bowel obstruction. Normal appendix. IMPRESSION: 1. Questionable minimal inflammatory change adjacent to the mid sigmoid colon which could represent n ormal mesenteric vessels. An early acute diverticulitis could also have a similar appearance. Clinica l closed recommended. 2. No evidence of bowel obstruction. 3. Normal appendix. 4. Cholelithiasis. ACT 112: Negative or not required by law. Electronically signed by: Momo Hall M.D. 03/14/2021 8:56 AM
[2021-03-14] MEDS ORDERED: PROPOFOL IV EMULSION 10 MG/ML 20 ML VIAL IV ONE ×2 (09:28→10:44)
[2021-03-14] MEDS ORDERED: LIDOCAINE 2% 2 ML VIAL/AMP(20MG/ML) INFIL ONE (09:28)
[2021-03-14] MEDS ORDERED: fentaNYL citrate 100 MCG/2 ML VIAL ONE ×4 (09:28→11:20)
[2021-03-14] MEDS ORDERED: ONDANSETRON INJ 2 MG/ML 2 ML VIAL ONE (09:28)
[2021-03-14] MEDS ORDERED: ROCURONIUM BROMIDE 10 MG/ML 5 ML VIAL IV ONE ×2 (09:28→10:53)
[2021-03-14] MEDS ORDERED: DEXAMETHASONE SOD INJ 4 MG/ML VIAL ONE (09:28)
[2021-03-14] MEDS ORDERED: MIDAZOLAM HCL 1 MG/ML 2ML VIAL ONE (09:28)
--- NOTE | 2021-03-14 09:45 | XRay Report ---
XR chest 1V portable INDICATION: MN ^upper abd pain . TECHNIQUE: Single frontal radiograph of the chest was obtained. Comparison: Comparison is made to chest 2 views 07/28/2019 FINDINGS: No lines and tubes are seen. The cardiomediastinal silhouette is normal. The lungs are clear. No evid ence of pleural effusion or pneumothorax. IMPRESSION: No acute chest disease. ACT 112: Negative or not required by law. Electronically signed by: Louis Doe M.D. 03/14/2021 9:43 AM
[2021-03-14] MEDS ORDERED: LIDOCAINE/EPINEPHRINE 1% 20 ML VIAL ONE (10:34)
[2021-03-14] MEDS ORDERED: PHENYLEPHRINE HCL 10 MG/ML VIAL ONE (10:44)
[2021-03-14] MEDS ORDERED: ePHEDrine sulfate 50 MG/ML AMP ONE (10:44)
[2021-03-14] MEDS ORDERED: OPTIRAY 300 IV ONE (11:05)
--- NOTE | 2021-03-14 11:16 | Fluoroscopy Report ---
FL cholangiogram OR CLINICAL INDICATION: MN ^CHOLANGIOGRAM. TECHNIQUE: 2 views were obtained with the C-arm in the OR with the above procedure. Total fluoroscopy time was 3.3 seconds. Total skin dose was 1.1 mGy. Comparison: None available at the time of this dictation. FINDINGS/IMPRESSION: Intraoperative images of cholangiogram are seen. Please correlate with intraoperative fluoroscopy and operative report. ACT 112: Negative or not required by law. Electronically signed by: Louis Doe M.D. 03/14/2021 11:15 AM
--- NOTE | 2021-03-14 11:31 | Post Operative Brief Note ---
PG Immediate Post Op with CF Date of Surgery March 14, 2021 Pre & Post Diagnosis Operation Date: 03/14/21 10:00 Pre-Op Diagnosis: Cholelithiasis Post-Op Diagnosis: Cholelithiasis I identified the patient and participated in the time-out.: Yes Procedure Operation Date: 03/14/21 10:00 Actual Procedures p Laparoscopic Cholecystectomy with cholangiogram(Not Applicable) - Kameron Ponce MD, FACS Surgeon Kameron Ponce MD, FACS Basket Machine Operator 0 Estimated Blood Loss 5 Findings Consistent with Post-Op Diagnosis Specimens Specimen Description: a. gallbladder
[2021-03-14] MEDS ORDERED: NEOSTIGMINE METHYLSULFATE 1 MG/ML 10ML VIAL ONE (11:33)
[2021-03-14] MEDS ORDERED: GLYCOPYRROLATE 0.2 MG/ML VIAL ONE (11:33)
[2021-03-14] MEDS ORDERED: KETOROLAC 30 MG/ML VIAL ONE (11:33)
[2021-03-14] MEDS ORDERED: MoRPHine SULFATE 4 MG/ML 1 ML CARP\\VIAL IV PRN (11:40)
[2021-03-14] MEDS ORDERED: oxyCODONE/APAP 7.5/325MG TAB PO PRN (11:45)
--- NOTE | 2021-03-14 12:02 | Operative Report ---
Post Operative Report Pre & Post Diagnosis Operation Date: 03/14/21 10:00 Pre-Op Diagnosis: Cholelithiasis Post-Op Diagnosis: Cholelithiasis I identified the patient and participated in the time-out.: Yes Procedure Operation Date: 03/14/21 10:00 Actual Procedures p Laparoscopic Cholecystectomy with cholangiogram(Not Applicable) - Kameron Ponce MD, FACS Patient was brought into the operating theater supine position general endotracheal anesthesia antibiotics on board abdomen was prepped Betadine solution properly draped timeout was had the patient was identified small incision was made supraumbilically sufficient for Veress needle followed by CO2 intra-abdominal pressure about 12 and then were able to follow a 5 mm trocar followed by the scope point of entry spectrin no injury identified under direct visualization we placed a 5 mm epigastric port and 2 5 mm subcostal ports with preemptive local analgesic gallbladder was identified the patient was placed on reverse Trendelenburg slightly to rotated to the left gallbladder wall was very thick-walled edematous we actually aspirated to get a bladder polyp and we aspirated and had typical green bile lateral trocar site port was Used to elevate the fundus of the gallbladder and the neck of the gallbladder was dissected out mostly bluntly with significant edema of the wall and neck of the gallbladder we were able to get around the cystic duct without any issues and at the takeoff from the gallbladder neck we were able to place a 5 mm clip small opening cystic duct was made we at this point try to place a 4 urethral catheter transversing abdominal wall and a 14 Angiocath in the cystic duct and seems to be hanging up in the cystic duct further down therefore we milked the cystic duct and found a bilirubinate stone that was embedded in the cystic duct preventing the catheter from passing at this point we remove this catheter and cystic duct without any problem 2 x-rays were taken showed no further stones in the cystic duct no filling defect in the common bile duct the cholangiocatheter was then removed the cystic duct was doubly clipped and divided cystic artery seemed identified doubly clipped and divided the gallbladder was taken out mostly bluntly due to edema electrocautery was used to leave as much posterior peritoneum was possible gallbladder placed in an Endopouch and taken out intact through the epigastric port subhepatic suprahepatic area was then checked hemostasis appear satisfactory we placed the camera right upper quadrant trocar site visualize initial entry into the abdomen through the umbilical area no adhesions were identified there this point all trochars were taken out on direct visualization the wounds were closed with 4-0 Monocryl for subcutaneous Steri- Strips applied procedure was tolerated well by the patient estimate blood loss 5 cc Addendum talked to his Tamar at [phone] Surgeon Kameron Ponce MD, FACS Wicker Molded Candles 0 Estimated Blood Loss 5 Findings Consistent with Post-Op Diagnosis Acute and chronic cholecystitis cholelithiasis Specimens Gallbladder and contents Description of Procedure merda I attest to the content of the Intraoperative Record and any orders documented therein. Any exceptions are noted below.
--- NOTE | 2021-03-14 12:38 | Anesthesiology Progress Note ---
Date of Service March 14, 2021 Anesthesia Post Procedure Vital Signs Vital Signs: Temp Pulse Pulse Resp BP BP Pulse Ox 03/14/21 12:30 97.2 F L 52 L 14 156/80 H 98 03/14/21 12:20 55 L 17 156/79 H 98 03/14/21 12:10 63 11 L 147/77 H 98 03/14/21 12:00 72 15 147/71 H 97 03/14/21 11:50 64 18 142/71 H 99 03/14/21 11:43 96.8 F L 87 16 146/84 H 91 03/14/21 09:00 80 18 131/84 96 03/14/21 07:28 88 18 152/83 H 95 03/14/21 04:46 83 18 94 03/14/21 03:37 98.4 F 73 18 150/87 H 95 Pain Intensity Abdomen: Pain Intensity: 2 Transfer of Care Handoff Completed per policy Notes Mental Status: alert / awake / arousable and participated in evaluation Patient Amnestic to Procedure: Yes Nausea / Vomiting: adequately controlled Pain: adequately controlled Airway Patency, RR, SpO2: stable & adequate BP & HR: stable & adequate Hydration State: stable & adequate Anesthetic Complications: no major complications apparent and Pt Satisfied with anesthetic care
[2021-03-14] MEDS: LACTATED RINGER'S 1,000 ML IV SCH (13:16)
[2021-03-14] MEDS ORDERED: HEPARIN SOD 5,000 UNIT/0.5 ML VIAL SQ SCH (14:00)
[2021-03-15] MEDS: LACTATED RINGER'S 1,000 ML IV SCH (01:48)
--- NOTE | 2021-03-15 05:40 | Surgery Progress Note ---
Date of Service March 15, 2021 Assessment & Plan (1) Cholelithiasis: Plan: Patient is status post laparoscopic cholecystectomypostop day #1 Continue diet as tolerated Continue analgesics Continue antiemetics We will have patient ambulate in the hallway and if he is stable on his feet may consider discharge home later this morning Admission and Anticipated Discharge Date Admission Date: March 14, 2021 Supervising Physician Co-Signing Physician Notes As per Damion Lujan physician assistant operations manager Patient is resting comfortably feeling much better than yesterday no real abdominal discomfort Operative findings were discussed with the patient At this point okay to discharge the patient we will see the patient back in the office in 1 week instructions were given regarding driving and limited activity All questions were answered including the fact that 1 out of 10 people that have the gallbladder out may have some loose stools or even diarrhea for the next 2 or 3 weeks and then it should subside Subjective Patient is resting in bed. He notes he was able to eat a small amount of solid food for dinner last night. This did not exacerbate any abdominal pain. He does not have any nausea vomiting. Since his surgery he has not had a bowel movement and is not passing any flatus. He has yet to ambulate since his surgery Physical Exam Gastrointestinal (Abdomen): Abdomen is rotund with positive bowel sounds. There is minimal pain with palpation. His incisions are clean, dry, and intact. Musculoskeletal: No calf tenderness Results & Data ([facility]) Vital Signs (Past 12 Hours) Vital Signs Temp Pulse Resp BP Pulse Ox 03/15/21 02:15 36.5 C 74 16 125/70 92 03/14/21 23:17 36.7 C 83 16 133/77 91 03/14/21 19:38 36.6 C 81 16 146/77 H 94 PG Care Time/CCT Total # of Minutes Spent Total Time Spent with Patient: Total time spent is greater than 50% in coordination of care (as documented) at patient's floor/unit and/or counseling patient: Coding Level of Care Code None Diagnoses Cholelithiasis K80.20
--- NOTE | 2021-03-15 19:30 | Electrocardiogram Report ---
Test Reason : Blood Pressure : / mmHG Vent. Rate : 060 BPM Atrial Rate : 060 BPM P-R Int : 166 ms QRS Dur : 110 ms QT Int : 424 ms P-R-T Axes : 007 -33 001 degrees QTc Int : 424 ms Normal sinus rhythm Left axis deviation Abnormal ECG When compared with ECG of 27-MAY-2020 10:04, No significant change was found Confirmed by Balbir Ojeda ([id number]) on 03/15/2021 7:29:49 PM Referred By: REFERRED SELF Confirmed By:Balbir Ojeda
--- NOTE | 2021-03-18 20:47 | Discharge Summary ---
Date of Service March 18, 2021 Admission HPI Per Admitting Provider This is a 60-year-old male who presented [facility] secondary to abdominal pain. Patient notes that pain began approximately 4:00 PM yesterday before eating dinner. He said the pain did not radiate he did not identify any palliative or provocative factors. He denies any nausea or vomiting. He denies any fever shakes or chills. He notes that several months ago he did have similar pain that was not as severe and self resolved and today's pain was so severe that he had to present to the emergency department. He notes his last oral intake was approximate 11:00 PM last night. Patient does report prior abdominal surgeries as he had an inguinal and an umbilical herniorrhaphy. In the emergency department patient had labs and diagnostic which I independently reviewed. CBC reveals white blood cell count, hemoglobin, hematocrit, and platelet count are all within normal range. Chemistry profile showed sodium, potassium, and creatinine were within normal range. There were no significant elevation of patient's LFTs or lipase. A Covid test has been ordered and is pending. An EKG showed normal sinus rhythm without ischemic changes. A chest x-ray did not show any evidence of pneumonia. CT scan of the abdomen showed the patient had the presence of gallstones. A gallbladder ultrasound has been ordered and is pending. The time of my interview the patient was resting comfortably in bed. He was in no distress but did have right upper quadrant pain with palpation. Discharge Data Procedures Performed Operation Date: 03/14/21 10:00 Actual Procedures p Laparoscopic Cholecystectomy with cholangiogram(Not Applicable) - Kameron Ponce MD, [facility] Hospital Course (1) Cholelithiasis: Patient was admitted to [facility] after presenting to the emergency department due to abdominal pain. [place] the cholelithiasis/cholecystitis was the cause of abdominal pain. They found admission he underwent an uncomplicated laparoscopic cholecystectomy by Dr. Ponce. His diet was advanced in the appropriate fashion his pain was well controlled and he was deemed stable for discharge home on postop day #1. Coding Level of Care Code None Diagnoses Cholelithiasis K80.20
== END 2021-03-15 10:34 | disposition home or self-care (01) ==
LOC: ED 03:28 → ASU 10:00 → 3E 10:00

== ENCOUNTER 2021-05-12 08:57 | Inpatient (IN) ==
--- NOTE | 2021-05-12 09:24 | Emergency Department Note ---
Impression & Plan Acute hypoxemic respiratory failure due to COVID-19, Pneumonia due to COVID-19 virus ED Provider Note NAME: MARY BETH CARR AGE: 60 SEX: M : 1960 ARRIVES VIA: Walk-In INFORMANT: Patient, ED PROVIDER(S): Leodan Camilo MD Chief Complaint: Shortness of breath, Covid positive, low pulse oximeter HPI: Patient does present with the above complaints. The patient states that he has been symptomatic since 2 Saturdays ago got tested last Tuesday with a positive result this past Tuesday. The patient has decreased appetite and p.o. intake with associated nausea. The patient denies any vomiting or diarrhea. No recent travel but the patient does believe he contracted it from giving a ride from an Mosque person who subsequently became sick and the patient was also sick soon after being with his Mosque person. Patient denies any fevers or chills. The patient had been checking his pulse oximeter and was noted to be in the mid to high 80s at home. Patient is a non-smoker. Patient does have a prior hist ory of stroke with no residual deficits and does have an ASD and PFO for which the patient does take aspirin and statin medication. Patient has been trying to take [id number] medications but without significant improvement in symptoms. The patient denies any tobacco use. The patient denies any prior history of DVT or PE. The patient does not use at home oxygen and has no prior history of MAXIMILIANO. Patient's states that his symptoms have gotten progressively worse in the last several days have been fairly constant. Patient has felt more more fatigable. ROS: See HPI for pertinent positives and negatives. A total of 10 systems were reviewed and otherwise negative. Past medical history: See below Surgical history: See below Social history: See below Physical Exam: GENERAL: NAD, wearing glasses, wearing a mask, non-toxic. EYE EXAM: Normal conjunctiva. PERRL, no anisocoria and EOM's grossly intact w/o pain. NECK: Supple, no nuchal rigidity, no adenopathy, non-tender. No signs of meningismus. LUNGS: Bibasilar crackles. Normal chest wall mechanics. HEART: NSR, no MRG. ABDOMEN: Abdomen soft, non-tender, normo-active bowel sounds, no masses, no rebound or guarding. BACK: No CVA TTP. SKIN: No rashes and no bruising. UPPER EXTREMITIES: Upper extremities are grossly normal. LOWER EXTREMITIES: Grossly normal, no edema. NEURO EXAM: A&O x3, cranial nerves II-XII grossly intact, normal speech, moves all 4 extremities on command w/o issue. Differential diagnoses: Reactive airway disease, pneumonia, pneumothorax, COPD, CHF, infections, cardiac ischemia, pulmonary embolism, musculoskeletal, gastrointestinal, as well as other pathologies. Course: Patient was seen and evaluated the bedside. Full history physical exam was performed. EKG interpreted by me Normal sinus rhythm, rate of 81, normal intervals, left axis deviation, T wave inversion in lead III, no obvious ST changes. No significant change from comparison EKG March 14, 2021. Imaging Studies: See Below Cardiac monitoring: An order was placed for continuous cardiac monitoring. The monitor shows a rate of with rhythm. MDM: Patient did present due to concern for COVID-19 and hypoxia. The patient was placed on supplemental oxygen order dexamethasone in addition to blood work. Patient's blood work shows normal white count H&H and platelet count. Kidney function is unremarkable. The patient troponin is nondetectable. EKG with no acute findings. Chest x-ray shows likely Covid pneumonia which would be consistent with the patient's history and exam. I did speak with the on-call hospitalist Dr. Tracy and the patient was admitted to the medicine service. Critical Care: I have personally spent 37 minutes of critical care time in direct management of this patient. This includes bedside care, interpretation of diagnostic studies, and testing, discussion with consultants, patient, and family members, and other require inpatient management activities. This 37 minutes is in excess of all s eparately billable procedures. 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 Repeat ECHO in 2018 showed no atrial septal defect. Per cardio note on 08/06/19- PFO does not require yearly cardio follow up. Continue statin and ASA Sinus problem Chronic sinus drainage/mucus - mild - stable - not worsening Surgical History History of arthroscopy left knee 1985 d/t injury History of arthroscopy of left knee History of colonoscopy AGE 52 History of herniorrhaphy umbilical History of right hip replacement History of umbilical hernia repair Hx laparoscopic cholecystectomy (03/14/21) Laparoscopic Cholecystectomy with cholangiogram Dr. Ponce 03/14/2021 Status post left knee replacement (~09/2020) Family History Grandmother (Paternal) Family history of cancer Father Hypertension Family history of diabetes mellitus Denies family history of Ovarian cancer Prostate cancer Myocardial infarction Breast cancer Colorectal cancer Social History Smoking Status: Never smoker Second Hand Exposure: Yes ( A CHILD); Hx Alcohol Use: No Hx Substance Use: No Preferred Language: Kiswahili Communication Ability: Effective Television Engineer Required: No Beliefs That Will Affect Care: None marital status: Current Living Situation: Spouse current occupational status: employed 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 You have: 4 Feels Safe at Home: Yes Childhood Exposure to Second-Hand Smoke: No caffeine: Yes Dental Care, Regularly: Yes Physical Activity Frequency: Daily Seatbelt Use: always Sunscreen Use: No Assistive Devices: Glasses Allergies Allergies Allergy/AdvReac Type Severity Reaction Status Date / Time No Known Allergies Allergy Verified 05/12/21 10:49 Home Meds Home Medications Medication Instructions Recorded Confirmed loratadine 10 mg tablet (Claritin) 10 mg PO HS 06/19/18 05/12/21 aspirin 81 mg tablet,delayed 81 mg PO HS 05/20/20 05/12/21 release (Ecotrin Low Strength) multivitamin 1 tab PO QAM 09/03/20 05/12/21 ibuprofen 200 mg tablet 600 mg PO Q6H PRN 04/23/21 05/12/21 Previous Rx's Medication Instructions Recorded atorvastatin 40 mg tablet 40 mg PO HS #30 tab 01/05/21 omeprazole 20 mg capsule,delayed 20 mg PO HS #30 cap 01/05/21 release Results & Data (ED) Vital Signs Vital Signs - 24 hr 05/12/21 09:04 05/12/21 09:55 05/12/21 10:04 Temperature 36.5 C Temperature Source Temporal Artery Scan Pulse Rate 89 76 Pulse Rate from SpO2 Sensor 75 Respiratory Rate 24 25 H Respiratory Effort / Characteristics Non-Labored Respiratory Depth Normal Respiratory Pattern Regular Blood Pressure 109/70 Blood Pressure Mean 83 Blood Pressure Position Sitting Pulse Oximetry 88 L 88 L 94 Oxygen Delivery Method Room Air Room Air Sepsis Recent Fever Within 48 Hours No Sepsis New/Unexplained Change in Mental Status No Sepsis Action Taken by Nursing No Action Required Oxygen Flow Rate - Titration 2 Pulse Oximetry Post Tiitration 92 05/12/21 10:10 05/12/21 10:20 05/12/21 10:30 Temperature Temperature Source Pulse Rate 74 72 75 Pulse Rate from SpO2 Sensor 74 72 76 Respiratory Rate 29 H 28 H 28 H Respiratory Effort / Characteristics Respiratory Depth Respiratory Pattern Blood Pressure Blood Pressure Mean Blood Pressure Position Pulse Oximetry 94 95 96 Oxygen Delivery Method Sepsis Recent Fever Within 48 Hours Sepsis New/Unexplained Change in Mental Status Sepsis Action Taken by Nursing Oxygen Flow Rate - Titration Pulse Oximetry Post Tiitration 05/12/21 10:40 05/12/21 10:50 05/12/21 11:00 Temperature Temperature Source Pulse Rate 73 74 73 Pulse Rate from SpO2 Sensor 73 74 Respiratory Rate 26 H 29 H 29 H Respiratory Effort / Characteristics Respiratory Depth Respiratory Pattern Blood Pressure Blood Pressure Mean Blood Pressure Position Pulse Oximetry 96 95 Oxygen Delivery Method Sepsis Recent Fever Within 48 Hours Sepsis New/Unexplained Change in Mental Status Sepsis Action Taken by Nursing Oxygen Flow Rate - Titration Pulse Oximetry Post Tiitration 05/12/21 11:10 05/12/21 11:20 Temperature Temperature Source Pulse Rate 75 84 Pulse Rate from SpO2 Sensor 75 84 Respiratory Rate 30 H 24 Respiratory Effort / Characteristics Respiratory Depth Respiratory Pattern Blood Pressure Blood Pressure Mean Blood Pressure Position Pulse Oximetry 93 93 Oxygen Delivery Method Sepsis Recent Fever Within 48 Hours Sepsis New/Unexplained Change in Mental Status Sepsis Action Taken by Nursing Oxygen Flow Rate - Titration Pulse Oximetry Post Tiitration Home Medications Current Medication List: was personally reviewed by me Laboratory Data Attestation: I reviewed the patient's lab results. Result diagrams: 05/12/21 09:50 05/12/21 09:50 Lab Results 05/12/21 05/12/21 Range/Units 09:50 09:50 WBC 6.41 (4.8-10.8) K/uL RBC 5.17 (4.7-6.1) M/uL Hgb 14.9 (14.0-18.0) g/dL Hct 43.8 (42-52) % MCV 84.7 (80-100) fL MCH 28.8 (25-34) pg MCHC 34.0 (32-36) g/dL RDW Std Deviation 45.0 (36.4-46.3) fL RDW Coeff of Nereida 14.3 (11.5-14.5) % Plt Count 193 (130-400) K/uL MPV 10.6 H (7.4-10.4) fL Immature Gran % (Auto) 0.3 % Neut % (Auto) 83.7 % Lymph % (Auto) 10.8 % Bibb % (Auto) 4.8 % Eos % (Auto) 0.2 % Baso % (Auto) 0.2 % Neut # (Auto) 5.37 (1.4-6.5) K/uL Lymph # (Auto) 0.69 L (1.2-3.4) K/uL Bibb # (Auto) 0.31 (0.11-0.59) K/uL Eos # (Auto) 0.01 (0-0.5) K/uL Baso # (Auto) 0.01 (0-0.2) K/uL Immature Gran # (Auto) 0.02 (0.00-0.02) K/uL Sodium 136 (136-145) mmol/L Potassium 3.6 (3.5-5.1) mmol/L Chloride 106 (98-107) mmol/L Carbon Dioxide 24 (21-32) mmol/L Anion Gap 6.0 (3-11) BUN 16 (7-18) mg/dl Creatinine 0.91 (0.6-1.4) mg/dl Est Cr Clr Drug Dosing 122.2 ml/min Est GFR ( Amer) 107.3 ml/min Est GFR (Non-Af Amer) 92.6 ml/min BUN/Creatinine Ratio 17.9 (10-20) Glucose 115 H (70-99) mg/dl Calcium 8.8 (8.5-10.1) mg/dl Total Bilirubin 0.7 (0.2-1) mg/dl AST 47 H (15-37) U/L ALT 48 (12-78) U/L Alkaline Phosphatase 64 (45-117) U/L Troponin I < 0.015 (0-0.045) ng/ml Total Protein 7.0 (6.4-8.2) gm/dl Albumin 2.8 L (3.4-5.0) gm/dl Globulin 4.2 H (2.5-4.0) gm/dl Albumin/Globulin Ratio 0.7 L (0.9-2) Administered Medications Discontinued Medications Dexamethasone Sodium Phosphate (DexamethasonePf 10 Mg/Ml Vial) 6 mg IV NOW ONE Stop: 05/12/21 09:31 Last Admin: 05/12/21 10:01 Dose: 6 mg Documented by: [id number] Sodium Chloride (Nss 1000ml) 1,000 mls @ 999 mls/hr IV .Q1H1M GEOVANNA Stop: 05/12/21 10:30 Last Infusion: 05/12/21 11:03 Dose: 0 mls/hr Documented by: [id number] Admin: 05/12/21 10:01 Dose: 999 mls/hr Documented by: [id number] Imaging Data Radiologist's Impression: Chest X-Ray 05/12/21 09:30 XR chest 1V portable CLINICAL HISTORY: COVID, dyspnea. COMPARISON STUDY: 03/14/2021 TECHNIQUE: 1 view of the chest FINDINGS: Single frontal view of the chest demonstrates the cardiomediastinal silhouette to be within normal limits. Patchy interstitial and alveolar opacities are present bilaterally. The findings are most characteristic of a viral type pneumonitis. Covid 19 pneumonia should be excluded. There is no evidence for pleural effusion. There is no evidence for vascular congestion. There is no acute osseous pathology. IMPRESSION: Patchy interstitial and alveolar opacities bilaterally characteristic of a viral type pneumonitis and probable Covid 19 pneumonia. ACT 112: Negative or not required by law. Electronically signed by: Price Liang M.D. 05/12/2021 10:06 AM Discharge Plan Visit Data Chief Complaint: Respiratory Problems Stated Complaint: COVID POS 05/05/21 LOW OXYGEN ED Provider: Leodan Camilo Discharge Problem: Acute hypoxemic respiratory failure due to COVID-19, Pneumonia due to COVID-19 virus Patient Disposition: Admitted As Inpatient Discharge Instructions Interventions: ED Discharge Assessment Last Done: 05/12/21 14:21
[2021-05-12] MEDS ORDERED: SODIUM CHLORIDE 0.9% 1000ML 1,000 ML IV SCH (09:30)
[2021-05-12] MEDS ORDERED: dexAMETHasone**PF** 10 MG/ML VIAL IV ONE (09:30)
--- NOTE | 2021-05-12 10:07 | XRay Report ---
XR chest 1V portable CLINICAL HISTORY: COVID, dyspnea. COMPARISON STUDY: 03/14/2021 TECHNIQUE: 1 view of the chest FINDINGS: Single frontal view of the chest demonstrates the cardiomediastinal silhouette to be within normal li mits. Patchy interstitial and alveolar opacities are present bilaterally. The findings are most duane cteristic of a viral type pneumonitis. Covid 19 pneumonia should be excluded. There is no evidence fo r pleural effusion. There is no evidence for vascular congestion. There is no acute osseous pathology . IMPRESSION: Patchy interstitial and alveolar opacities bilaterally characteristic of a viral type pne umonitis and probable Covid 19 pneumonia. ACT 112: Negative or not required by law. Electronically signed by: Price Liang M.D. 05/12/2021 10:06 AM
[2021-05-12 10:10] LABS: Basophils # (auto) 0.01 K/uL (0-0.2); Basophils % (auto) 0.2 %; Eosinophils # (auto) 0.01 K/uL (0-0.5); Eosinophils % (auto) 0.2 %; Hematocrit (blood only) 43.8 % (42-52); Hemoglobin 14.9 g/dL (14.0-18.0); Immature Granulocytes # (auto) 0.02 K/uL (0.00-0.02); Immature Granulocytes % (auto) 0.3 %; Lymphocytes # (auto) 0.69 K/uL (1.2-3.4); Lymphocytes % (auto) 10.8 %; Mean Corpuscular Hemoglobin 28.8 pg (25-34); Mean Corpuscular Volume 84.7 fL (80-100); Mean Platelet Volume 10.6 fL (7.4-10.4); Monocytes # (auto) 0.31 K/uL (0.11-0.59); Monocytes % (auto) 4.8 %; Neutrophils # (auto) 5.37 K/uL (1.4-6.5); Neutrophils % (auto) 83.7 %; Platelet Count 193 K/uL (130-400); RDW Coefficient of Variation 14.3 % (11.5-14.5); Red Blood Count 5.17 M/uL (4.7-6.1); White Blood Count 6.41 K/uL (4.8-10.8)
[2021-05-12 10:29] LABS: Alanine Aminotransferase 48 U/L (12-78); Albumin Level 2.8 gm/dl (3.4-5.0); Aspartate Aminotransferase 47 U/L (15-37); BUN Creatinine Ratio 17.9 (10-20); Blood Urea Nitrogen 16 mg/dl (7-18); Calcium 8.8 mg/dl (8.5-10.1); Carbon Dioxide 24 mmol/L (21-32); Chloride 106 mmol/L (98-107); Creatinine Clr Calc Pharmacy 122.2 ml/min; Est GFR (African American) 107.3 ml/min; Est GFR (Non-African American) 92.6 ml/min; Glucose 115 mg/dl (70-99); Potassium 3.6 mmol/L (3.5-5.1); Sodium 136 mmol/L (136-145)
[2021-05-12 10:34] LABS: Albumin Globulin Ratio 0.7 (0.9-2); Alkaline Phosphatase 64 U/L (45-117); Bilirubin,Total 0.7 mg/dl (0.2-1); Globulin 4.2 gm/dl (2.5-4.0); Troponin I < 0.015 ng/ml (0-0.045)
--- NOTE | 2021-05-12 11:08 | History & Physical Report ---
Date of Service May 12, 2021 Assessment & Plan (1) Pneumonia due to COVID-19 virus: Plan: On day 11 of symptoms at the time of admission. Here with bilateral infiltrates on chest x-ray and hypoxia in the mid to upper 80s on pulse ox. Having fevers, decreased p.o. intake and appetite He is unvaccinated. -Admit to medical floor telemetry, Covid precautions unit -Start dexamethasone 6 mg IV once daily x10-day course -He is out of the window for Remdesivir and does not qualify for baricitinib at this point -Start incentive spirometer, flutter valve -Start DuoNebs 4 times daily scheduled for at least the first 24 hours -Encouraged prone positioning which he says he is definitely able to do as much as possible -Continue supplemental O2 to keep pulse ox greater than 90% -Follow CBC, CMP, CRP in the morning -Tylenol as needed for fevers (2) Acute respiratory failure with hypoxia: Plan: Secondary to Covid-19 PNA Interventions as above (3) Transaminitis: Plan: Mild elevation of AST likely secondary to Covid-19 infection Follow LFTs in the morning (4) Impaired fasting glucose: Plan: Now that he will be on dexamethasone, he might have hyperglycemia Add Accu-Cheks, NovoLog SSI as needed Check hemoglobin A1c in the morning ADA diet (5) History of stroke: Plan: With history of posterior circulation stroke it sounds like based on his description of vertigo when he pointed to the back of his head of where the stroke was found when he was hospitalized at [facility] in 2016 Continue aspirin, statin (6) Obesity: Plan: BMI 40.3 which is a significant risk factor for progression to severe disease Encouraged weight loss (7) PFO (patent foramen ovale): Plan: Noted, no specific treatment for this (8) Hypercholesterolemia: Plan: Continue statin, aspirin (9) Allergic rhinitis: Plan: Continue loratadine, no acute issues Plan: DVT prophylaxis-Lovenox 0.5 mg/KG SQ twice daily for now, however he is hesitant to receive injections. I advised him to let the nursing staff know if they are too painful and we can switch him to Xarelto 10 mg p.o. once daily for DVT prophylaxis Disposition-admit to medical floor with telemetry, expect a least a 2 midnight stay. Full code His would be his decision maker if he is unable to make decisions. History of Present Illness Chief Complaint: Shortness of breath, low oxygen level, Covid-19 Primary Care Provider: Vinayak Ames, This patient is a 60-year-old male with a history of allergic rhinitis, hypercholesterolemia, impaired fasting glucose, posterior CVA without residual deficits, PFO, BPPV, GERD, and obesity, who presents to the ER on day 11 of his Covid symptoms with worsening shortness of breath. He is not vaccinated for Covid-19. He has had decreased appetite and p.o. intake with associated nausea, no vomiting or diarrhea, no abdominal pain He had been checking his home pulse ox and noted it to be in the mid to high 80s range at home over the last 2 days He has been using [id number] medications at home. In the ER, his pulse ox was found to be 88% on room air, but vital signs otherwise stable. His CBC was normal except for mild lymphopenia, CMP was normal except for mild elevation of AST, troponin was negative, and his Covid test was positive on 05/04. His flu a and B test was negative on 05/04. These were not repeated today. His chest x- ray showed patchy interstitial and alveolar opacities bilaterally characteristic of viral type pneumonitis consistent with Covid-19 pneumonia. In the ER, he was given dexamethasone 6 mg IV x1 and 1 L of normal saline. He reported already feeling significantly better after these interventions along with being on 2 L nasal cannula. He feels his appetite has returned after these interventions as well and is finally feeling hungry after 1 week of having no appetite. He will be admitted for Covid-19 with pneumonia and acute respiratory failure with hypoxia. Allergies Allergy/AdvReac Type Severity Reaction Status Date / Time No Known Allergies Allergy Verified 05/12/21 10:49 Home Medications Medication Instructions Recorded Confirmed Type loratadine 10 mg tablet (Claritin) 10 mg PO HS 06/19/18 05/12/21 History aspirin 81 mg tablet,delayed 81 mg PO HS 05/20/20 05/12/21 History release (Ecotrin Low Strength) multivitamin 1 tab PO QAM 09/03/20 05/12/21 History atorvastatin 40 mg tablet 40 mg PO HS #30 tab 01/05/21 05/12/21 Rx omeprazole 20 mg capsule,delayed 20 mg PO HS #30 cap 01/05/21 05/12/21 Rx release ibuprofen 200 mg tablet 600 mg PO Q6H PRN 04/23/21 05/12/21 History Past Med/Surg History Medical History (Updated 05/12/21 @ 11:09 by Deb Tracy MD) Acid reflux Well controlled and stable History of chemical exposure Chemical pneumonitis (silo gas poisoning at age 16) No residual breathing issues History of stroke 2015- no residual effects Hypercholesterolemia On statin Impaired fasting glucose Hgb A1C 6.1 in December 2019 PFO (patent foramen ovale) Found on echo at [facility] during w/u for ischemic stroke 2015. Repeat ECHO in 2018 showed no atrial septal defect. Per cardio note on 08/06/19- PFO does not require yearly cardio follow up. Continue statin and ASA Sinus problem Chronic sinus drainage/mucus - mild - stable - not worsening Surgical History History of arthroscopy left knee 1985 d/t injury History of arthroscopy of left knee History of colonoscopy AGE 52 History of herniorrhaphy umbilical History of right hip replacement History of umbilical hernia repair Hx laparoscopic cholecystectomy (03/14/21) Laparoscopic Cholecystectomy with cholangiogram Dr. Ponce 03/14/2021 Status post left knee replacement (~09/2020) Family History Grandmother (Paternal) Family history of cancer Father Hypertension Family history of diabetes mellitus Denies family history of Ovarian cancer Prostate cancer Myocardial infarction Breast cancer Colorectal cancer Social History Smoking Status: Never smoker Second Hand Exposure: Yes ( A CHILD); Hx Alcohol Use: No Hx Substance Use: No Preferred Language: Venezuelan Communication Ability: Effective Analytic Programmer Required: No Beliefs That Will Affect Care: None marital status: Current Living Situation: Spouse current occupational status: employed 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 You have: 4 Feels Safe at Home: Yes Childhood Exposure to Second-Hand Smoke: No caffeine: Yes Dental Care, Regularly: Yes Physical Activity Frequency: Daily Seatbelt Use: always Sunscreen Use: No Assistive Devices: Glasses Review of Systems Review of Systems: All systems reviewed & are unremarkable except as noted in HPI & below Physical Exam Constitutional: WD/WN, vitals as above + obese Eyes: PERRL, conjunctivae normal, anicteric sclerae ENMT: external ear and nose normal, oropharynx normal (With slightly dry mucous membranes) Neck: trachea midline, no thyromegaly Respiratory: normal respiratory effort; no cough Auscultation: + crackles (Bilateral lower and middle lung gutiérrez); no rhonchi and no wheezes Cardiovascular: RRR, no murmur, no edema (Except trace chronic edema of the left leg since his knee replacement) Chest (Breasts): Chest: normal inspection of chest Gastrointestinal (Abdomen): normal bowel sounds, soft, nontender, no hepatosplenomegaly Musculoskeletal: Extremities: extremities normal to inspection; no cyanosis and no clubbing Skin: no rashes, warm and dry Neurologic: moves all extremities and awake; no focal motor deficits Psychiatric: A+Ox3, euthymic affect Results & Data Results & Data ([facility]) Vital Signs (Past 12 Hours) Vital Signs Temp Pulse Resp BP Pulse Ox 05/12/21 09:55 88 L 05/12/21 09:04 36.5 C 89 24 109/70 88 L Laboratory Results 05/12/21 05/12/21 Range/Units 09:50 09:50 WBC 6.41 (4.8-10.8) K/uL RBC 5.17 (4.7-6.1) M/uL Hgb 14.9 (14.0-18.0) g/dL Hct 43.8 (42-52) % MCV 84.7 (80-100) fL MCH 28.8 (25-34) pg MCHC 34.0 (32-36) g/dL RDW Std Deviation 45.0 (36.4-46.3) fL RDW Coeff of Nereida 14.3 (11.5-14.5) % Plt Count 193 (130-400) K/uL MPV 10.6 H (7.4-10.4) fL Immature Gran % (Auto) 0.3 % Neut % (Auto) 83.7 % Lymph % (Auto) 10.8 % [place] % (Auto) 4.8 % Eos % (Auto) 0.2 % Baso % (Auto) 0.2 % Neut # (Auto) 5.37 (1.4-6.5) K/uL Lymph # (Auto) 0.69 L (1.2-3.4) K/uL [place] # (Auto) 0.31 (0.11-0.59) K/uL Eos # (Auto) 0.01 (0-0.5) K/uL Baso # (Auto) 0.01 (0-0.2) K/uL Immature Gran # (Auto) 0.02 (0.00-0.02) K/uL Sodium 136 (136-145) mmol/L Potassium 3.6 (3.5-5.1) mmol/L Chloride 106 (98-107) mmol/L Carbon Dioxide 24 (21-32) mmol/L Anion Gap 6.0 (3-11) BUN 16 (7-18) mg/dl Creatinine 0.91 (0.6-1.4) mg/dl Est Cr Clr Drug Dosing 122.2 ml/min Est GFR ( Amer) 107.3 ml/min Est GFR (Non-Af Amer) 92.6 ml/min BUN/Creatinine Ratio 17.9 (10-20) Glucose 115 H (70-99) mg/dl Calcium 8.8 (8.5-10.1) mg/dl Total Bilirubin 0.7 (0.2-1) mg/dl AST 47 H (15-37) U/L ALT 48 (12-78) U/L Alkaline Phosphatase 64 (45-117) U/L Troponin I < 0.015 (0-0.045) ng/ml Total Protein 7.0 (6.4-8.2) gm/dl Albumin 2.8 L (3.4-5.0) gm/dl Globulin 4.2 H (2.5-4.0) gm/dl Albumin/Globulin Ratio 0.7 L (0.9-2) Diagnostic Findings Chest x-ray image personally reviewed by me and agree with following report: Chest X-Ray 05/12/21 09:30 XR chest 1V portable CLINICAL HISTORY: COVID, dyspnea. COMPARISON STUDY: 03/14/2021 TECHNIQUE: 1 view of the chest FINDINGS: Single frontal view of the chest demonstrates the cardiomediastinal silhouette to be within normal limits. Patchy interstitial and alveolar opacities are present bilaterally. The findings are most characteristic of a viral type pneumonitis. Covid 19 pneumonia should be excluded. There is no evidence for pleural effusion. There is no evidence for vascular congestion. There is no acute osseous pathology. IMPRESSION: Patchy interstitial and alveolar opacities bilaterally characteristic of a viral type pneumonitis and probable Covid 19 pneumonia. ACT 112: Negative or not required by law. Electronically signed by: Price Liang M.D. 05/12/2021 10:06 AM ECG Additional Comments: ECG normal sinus rhythm, no ischemic changes, normal QTC Code Status & VTE Plan Code Status Full code VTE Prophylaxis Plan VTE Prophylaxis will be ordered: Yes PG Care Time/CCT Total # of Minutes Spent Total Time Spent with Patient: Total time spent is greater than 50% in coordination of care (as documented) at patient's floor/unit and/or counseling patient: Coding Level of Care Code 50781 Initial Inpt Care Lvl 3 Diagnoses Obesity E66.9 Allergic rhinitis J30.9 Impaired fasting glucose R73.01 Hypercholesterolemia E78.00 PFO (patent foramen ovale) Q21.1 History of stroke Z86.73 Pneumonia due to COVID-19 virus U07.1; J12.82 Acute respiratory failure with hypoxia J96.01 Transaminitis R74.01
[2021-05-12] MEDS ORDERED: GLUCOSE 40% GEL 15 GM TUBE PO PRN (14:24)
[2021-05-12] MEDS ORDERED: CARBOHYDRATES FOR HYPOGLYCEMIA PO PRN (14:24)
[2021-05-12] MEDS ORDERED: ENOXAPARIN 0.5 MG/KG SQ SCH (14:24)
[2021-05-12] MEDS ORDERED: GLUCOSE 10 TABS/TUBE PO PRN (14:24)
[2021-05-12] MEDS ORDERED: GLUCAGON FOR INJ 1 MG VIAL SQ PRN (14:24)
[2021-05-12] MEDS ORDERED: DEXTROSE 50% 50 ML SYRINGE IV PRN (14:24)
[2021-05-12] MEDS ORDERED: POLYETHYLENE (MIRALAX) 17 GM PACK PO PRN (14:24)
[2021-05-12] MEDS ORDERED: ACETAMINOPHEN 325 MG TAB PO PRN (14:24)
[2021-05-12] MEDS ORDERED: ONDANSETRON INJ 2 MG/ML 2 ML VIAL IV PRN (14:24)
[2021-05-12] MEDS ORDERED: ENOXAPARIN 80 MG/0.8 ML SYR SQ SCH (15:00)
[2021-05-12] MEDS: ALBUT/IPRATROP 3MG/0.5MG NEB 3 ML VIAL NEB SCH ×2 (15:05→19:24)
[2021-05-12] MEDS: ENOXAPARIN 80 MG/0.8 ML SYR SQ SCH (16:46)
[2021-05-12] MEDS: INSULIN ASPART 100 UNITS/ML 3 ML PEN SC SCH ×3 (16:52→21:52)
--- NOTE | 2021-05-12 17:34 | Electrocardiogram Report ---
Test Reason : Blood Pressure : / mmHG Vent. Rate : 081 BPM Atrial Rate : 081 BPM P-R Int : 164 ms QRS Dur : 108 ms QT Int : 384 ms P-R-T Axes : 018 -33 006 degrees QTc Int : 446 ms Normal sinus rhythm Left axis deviation Abnormal ECG When compared with ECG of 14-MAR-2021 04:05, No significant change was found Confirmed by Ismael Ma ([id number]) on 05/12/2021 5:34:02 PM Referred By: REFERRED SELF Confirmed By:Vu Ma
[2021-05-13] MEDS: LORATADINE 10 MG TAB PO SCH ×2 (01:36→20:15)
[2021-05-13] MEDS: ATORVASTATIN 40 MG TAB PO SCH ×2 (01:36→20:15)
[2021-05-13] MEDS: ASPIRIN 81 MG ECTAB PO SCH ×2 (01:36→20:15)
[2021-05-13] MEDS: PANTOprazole 40 MG TAB PO SCH ×2 (01:37→20:15)
[2021-05-13] MEDS: ENOXAPARIN 80 MG/0.8 ML SYR SQ SCH ×2 (05:43→17:11)
[2021-05-13 08:18] LABS: Basophils # (auto) 0.01 K/uL (0-0.2); Basophils % (auto) 0.2 %; Hemoglobin 14.2 g/dL (14.0-18.0); Immature Granulocytes # (auto) 0.02 K/uL (0.00-0.02); Immature Granulocytes % (auto) 0.3 %; Lymphocytes # (auto) 0.92 K/uL (1.2-3.4); Mean Corpuscular Hemoglobin 29.3 pg (25-34); Mean Corpuscular Hgb Conc 34.6 g/dL (32-36); Mean Corpuscular Volume 84.7 fL (80-100); Mean Platelet Volume 10.9 fL (7.4-10.4); Monocytes # (auto) 0.54 K/uL (0.11-0.59); Monocytes % (auto) 9.4 %; Neutrophils # (auto) 4.26 K/uL (1.4-6.5); Neutrophils % (auto) 74.1 %; Platelet Count 235 K/uL (130-400); RDW Coefficient of Variation 14.1 % (11.5-14.5); RDW Standard Deviation 44.7 fL (36.4-46.3); Red Blood Count 4.84 M/uL (4.7-6.1); White Blood Count 5.75 K/uL (4.8-10.8)
[2021-05-13 08:48] LABS: Albumin Level 2.6 gm/dl (3.4-5.0); BUN Creatinine Ratio 19.2 (10-20); C Reactive Protein 3.82 mg/dl (0-0.29); Calcium 8.8 mg/dl (8.5-10.1); Creatinine Clr Calc Pharmacy 129.6 ml/min; Est GFR (African American) 110.8 ml/min; Est GFR (Non-African American) 95.6 ml/min
[2021-05-13 08:50] LABS: Estimated Average Glucose 134 mg/dl; Hemoglobin A1C 6.3 % (4.5-5.6)
[2021-05-13 08:51] LABS: Albumin Globulin Ratio 0.6 (0.9-2); Bilirubin,Total 0.7 mg/dl (0.2-1); Globulin 4.1 gm/dl (2.5-4.0); Total Protein 6.7 gm/dl (6.4-8.2)
[2021-05-13] MEDS: INSULIN ASPART 100 UNITS/ML 3 ML PEN SC SCH ×4 (09:00→21:53)
[2021-05-13] MEDS: MULTIVITAMIN TAB PO SCH (09:41)
[2021-05-13] MEDS: dexAMETHasone 6 MG in SYRINGE 0 ML IV SCH (09:42)
[2021-05-13] MEDS ORDERED: ALBUT/IPRATROP 3MG/0.5MG NEB 3 ML VIAL NEB PRN (10:04)
[2021-05-13] MEDS: ALBUT/IPRATROP 3MG/0.5MG NEB 3 ML VIAL NEB SCH (10:09)
--- NOTE | 2021-05-13 20:01 | Hospitalist Progress Note ---
Date of Service May 13, 2021 Assessment & Plan (1) Pneumonia due to COVID-19 virus: Plan: On day 11 of symptoms at the time of admission. Here with bilateral infiltrates on chest x-ray and hypoxia in the mid to upper 80s on pulse ox. Having fevers, decreased p.o. intake and appetite He is unvaccinated. - Covid precautions unit dexamethasone 6 mg IV once daily -He is out of the time window for Remdesivir and does not qualify for baricitinib at this point repeat CRP 12-21 -Start incentive spirometer, flutter valve - -Encouraged prone positioning which he says he is definitely able to do as much as possible -Continue supplemental O2 to keep pulse ox greater than 90% (2) Acute respiratory failure with hypoxia: Plan: Secondary to Covid-19 PNA Interventions as above requiring 10 L of oxygen to maintain saturations (3) Transaminitis: Plan: Mild elevation of AST likely secondary to Covid-19 infection resolved on day 1 (4) Impaired fasting glucose: Plan: Now that he will be on dexamethasone, he might have hyperglycemia Add Accu-Cheks, NovoLog SSI as needed 6.3 hemoglobin A1c will likely need some steroid coverage of glucose with insulin sliding scale ADA diet (5) History of stroke: Plan: With history of posterior circulation stroke it sounds like based on his description of vertigo when he pointed to the back of his head of where the stroke was found when he was hospitalized at [place] in 2016 Continue aspirin, statin (6) Obesity: Plan: BMI 40.3 which is a significant risk factor for progression to severe disease Encouraged weight loss (7) PFO (patent foramen ovale): Plan: Noted, no specific treatment for this (8) Hypercholesterolemia: Plan: Continue statin, aspirin (9) Allergic rhinitis: Plan: Continue loratadine, no acute issues Plan: DVT prophylaxis-Lovenox 0.5 mg/KG SQ twice daily for now, however he is hesitant to receive injections. I advised him to let the nursing staff know if they are too painful and we can switch him to Xarelto 10 mg p.o. once daily for DVT prophylaxis Full code His would be his decision maker if he is unable to make decisions. Family updated 05/13/2021 Admission and Anticipated Discharge Date Admission Date: May 12, 2021 Subjective Patient is on 10 L oxygen he is satting in the 90s with decrement of his oxygen his oxygen saturation go down. Does not have significant coughing he does have decreased appetite but not loss of taste or smell and is having no diarrhea Review of Systems Review of Systems: Moderate distress and fatigue no headache, no visual changes no speech or swallowing issues no chest pain, pressure or palpitations Kniffen get shortness of breath, but no cough or wheezes no abdominal pain, nausea or vomiting, diarrhea or constipation no dysuria, hematuria or frequency no focal joint pain or swelling no back pain, CVA tenderness or radicular pain no bruising, bleeding or rashes no focal signs of weakness or numbness or altered sensation no complaints of anxiety or depression.. Physical Exam Physical Exam: The patient appeared well nourished and normally developed. Vital signs as documented. Head exam is normocephalic atraumatic Neck is without JVD, thyromegaly, or carotid bruits. Lungs are rales in both lung gutiérrez half the way up no accessory muscle use Cardiac exam, Rhythm is regular.. No murmurs, rubs or gallops. Abdominal exam reveals normal bowel sounds, soft non tender, no masses Extremities are nonedematous and both pedal pulses are present Neurologic exam is alert and oriented, no focal loss of strength or sensation Skin is without bruises or rashes Psychologically is without concerns for anxiety or depression.. Results & Data Results & Data ([facility]) Vital Signs (Past 12 Hours) Vital Signs Temp Pulse Resp BP Pulse Ox Pulse Ox 05/13/21 17:37 90 05/13/21 16:54 97.7 F 71 18 134/75 90 05/13/21 16:28 90 05/13/21 11:38 98.2 F 71 20 122/74 93 PG Care Time/CCT Total # of Minutes Spent Total Time Spent with Patient: Total time spent is greater than 50% in coordination of care (as documented) at patient's floor/unit and/or counseling patient: Coding Level of Care Code 85376 Subseq Hosp Care Lvl 2 Diagnoses Pneumonia due to COVID-19 virus U07.1; J12.82 Acute respiratory failure with hypoxia J96.01 Transaminitis R74.01 Impaired fasting glucose R73.01 History of stroke Z86.73 Obesity E66.9 PFO (patent foramen ovale) Q21.1 Hypercholesterolemia E78.00 Allergic rhinitis J30.9
[2021-05-14] MEDS: ENOXAPARIN 80 MG/0.8 ML SYR SQ SCH ×2 (06:21→17:27)
[2021-05-14] MEDS: MULTIVITAMIN TAB PO SCH (08:22)
[2021-05-14] MEDS: dexAMETHasone 6 MG in SYRINGE 0 ML IV SCH (08:22)
[2021-05-14] MEDS: INSULIN ASPART 100 UNITS/ML 3 ML PEN SC SCH ×4 (08:23→21:34)
[2021-05-14 08:54] LABS: BUN Creatinine Ratio 26.3 (10-20); C Reactive Protein 1.15 mg/dl (0-0.29); Calcium 8.8 mg/dl (8.5-10.1); Creatinine Clr Calc Pharmacy 123.3 ml/min; Est GFR (African American) 108.5 ml/min; Est GFR (Non-African American) 93.6 ml/min; Potassium 4.2 mmol/L (3.5-5.1)
--- NOTE | 2021-05-14 18:42 | Hospitalist Progress Note ---
Date of Service May 14, 2021 Assessment & Plan (1) Pneumonia due to COVID-19 virus: Plan: On day 11 of symptoms at the time of admission. Here with bilateral infiltrates on chest x-ray and hypoxia in the mid to upper 80s on pulse ox. Having fevers, patient has some improvement of his p.o. intake He is unvaccinated. - Covid precautions unit dexamethasone 6 mg IV once daily -He is out of the time window for Remdesivir and does not qualify for baricitinib by having a low CRP, at this point oxygen requirements are lessening and do not feel it is indicated -Start incentive spirometer, flutter valve - -Encouraged prone positioning which he says he is definitely able to do as much as possible -Continue supplemental O2 to keep pulse ox greater than 90% (2) Acute respiratory failure with hypoxia: Plan: Secondary to Covid-19 PNA Interventions as above requiring 6 L of oxygen to maintain saturations (3) Transaminitis: Plan: Mild elevation of AST likely secondary to Covid-19 infection resolved on day 1 (4) Impaired fasting glucose: Plan: Now that he will be on dexamethasone, he might have hyperglycemia Add Accu-Cheks, NovoLog SSI as needed 6.3 hemoglobin A1c will likely need some steroid coverage of glucose with insulin sliding scale ADA diet (5) History of stroke: Plan: With history of posterior circulation stroke it sounds like based on his description of vertigo when he pointed to the back of his head of where the stroke was found when he was hospitalized at [place] in 2016 Continue aspirin, statin (6) Obesity: Plan: BMI 40.3 which is a significant risk factor for progression to severe disease Encouraged weight loss (7) PFO (patent foramen ovale): Plan: Noted, no specific treatment for this (8) Hypercholesterolemia: Plan: Continue statin, aspirin (9) Allergic rhinitis: Plan: Continue loratadine, no acute issues Plan: DVT prophylaxis-Lovenox 0.5 mg/KG SQ twice daily for now, however he is hesitant to receive injections. I advised him to let the nursing staff know if they are too painful and we can switch him to Xarelto 10 mg p.o. once daily for DVT prophylaxis Full code His would be his decision maker if he is unable to make decisions. Family updated 05/13/2021 Admission and Anticipated Discharge Date Admission Date: May 12, 2021 Subjective Patient is now on 6 L oxygen. Does not have significant coughing he does have decreased appetite but not loss of taste or smell and continues having no diarrhea Review of Systems Review of Systems: Moderate distress and fatigue no headache, no visual changes no speech or swallowing issues no chest pain, pressure or palpitations continues to get shortness of breath, but no cough or wheezes no abdominal pain, nausea or vomiting, diarrhea or constipation no dysuria, hematuria or frequency no focal joint pain or swelling no back pain, CVA tenderness or radicular pain no bruising, bleeding or rashes no focal signs of weakness or numbness or altered sensation no complaints of anxiety or depression.. Physical Exam Physical Exam: The patient appeared well nourished and normally developed. Vital signs as documented. Head exam is normocephalic atraumatic Neck is without JVD, thyromegaly, or carotid bruits. Lungs are rales in both lung gutiérrez half the way up no accessory muscle use Cardiac exam, Rhythm is regular.. No murmurs, rubs or gallops. Abdominal exam reveals normal bowel sounds, soft non tender, no masses Extremities are nonedematous and both pedal pulses are present Neurologic exam is alert and oriented, no focal loss of strength or sensation Skin is without bruises or rashes Psychologically is without concerns for anxiety or depression.. Results & Data Results & Data ([facility]) Vital Signs (Past 12 Hours) Vital Signs Temp Pulse Pulse Resp BP Pulse Ox Pulse Ox 05/14/21 18:01 92 05/14/21 15:38 76 05/14/21 15:04 99.5 F 71 19 129/79 91 05/14/21 12:59 93 05/14/21 12:11 98.6 F 75 22 130/76 92 05/14/21 07:50 98.1 F 93 H 20 133/77 93 05/14/21 07:47 84 PG Care Time/CCT Total # of Minutes Spent Total Time Spent with Patient: Total time spent is greater than 50% in coordination of care (as documented) at patient's floor/unit and/or counseling patient: Coding Level of Care Code 00779 Subseq Hosp Care Lvl 2 Diagnoses Pneumonia due to COVID-19 virus U07.1; J12.82 Acute respiratory failure with hypoxia J96.01 Transaminitis R74.01 Impaired fasting glucose R73.01 History of stroke Z86.73 Obesity E66.9 PFO (patent foramen ovale) Q21.1 Hypercholesterolemia E78.00 Allergic rhinitis J30.9
[2021-05-14] MEDS: ASPIRIN 81 MG ECTAB PO SCH (21:01)
[2021-05-14] MEDS: PANTOprazole 40 MG TAB PO SCH (21:02)
[2021-05-14] MEDS: ATORVASTATIN 40 MG TAB PO SCH (21:02)
[2021-05-14] MEDS: LORATADINE 10 MG TAB PO SCH (22:40)
[2021-05-15] MEDS: ENOXAPARIN 80 MG/0.8 ML SYR SQ SCH ×2 (06:09→17:18)
[2021-05-15] MEDS: INSULIN ASPART 100 UNITS/ML 3 ML PEN SC SCH ×4 (08:10→20:59)
[2021-05-15] MEDS: dexAMETHasone 6 MG in SYRINGE 0 ML IV SCH (08:22)
[2021-05-15] MEDS: MULTIVITAMIN TAB PO SCH (08:22)
--- NOTE | 2021-05-15 17:14 | Hospitalist Progress Note ---
Date of Service May 15, 2021 Assessment & Plan (1) Pneumonia due to COVID-19 virus: Plan: On day 11 of symptoms at the time of admission. Here with bilateral infiltrates on chest x-ray and hypoxia in the mid to upper 80s on pulse ox. Having fevers, patient has some improvement of his p.o. intake He is unvaccinated. - Covid precautions unit dexamethasone 6 mg IV once daily -He is out of the time window for Remdesivir and does not qualify for baricitinib by having a low CRP, at this point oxygen requirements are lessening and do not feel it is indicated -continue to reinforce incentive spirometer, flutter valve -Encouraged prone positioning which he says he is definitely able to do as much as possible -Continue supplemental O2 to keep pulse ox greater than 90% (2) Acute respiratory failure with hypoxia: Plan: Secondary to Covid-19 PNA Interventions as above requiring 3 L of oxygen to maintain saturations (3) Transaminitis: Plan: Mild elevation of AST likely secondary to Covid-19 infection resolved on day 1 (4) Impaired fasting glucose: Plan: Now that he will be on dexamethasone, he might have hyperglycemia Add Accu-Cheks, NovoLog SSI as needed 6.3 hemoglobin A1c will likely need some steroid coverage of glucose with insulin sliding scale ADA diet (5) History of stroke: Plan: With history of posterior circulation stroke it sounds like based on his description of vertigo when he pointed to the back of his head of where the stroke was found when he was hospitalized at [place] in 2016 Continue aspirin, statin (6) Obesity: Plan: BMI 40.3 which is a significant risk factor for progression to severe disease Encouraged weight loss (7) PFO (patent foramen ovale): Plan: Noted, no specific treatment for this (8) Hypercholesterolemia: Plan: Continue statin, aspirin (9) Allergic rhinitis: Plan: Continue loratadine, no acute issues Plan: DVT prophylaxis-Lovenox 0.5 mg/KG SQ twice daily Full code His would be his decision maker if he is unable to make decisions. Family updated 05/13,2,08/2020 Admission and Anticipated Discharge Date Admission Date: May 12, 2021 Subjective Patient is now on 3 L oxygen. Does not have significant coughing he does have decreased appetite but not loss of taste or smell and continues having no diarrhea Review of Systems Review of Systems: Moderate distress and fatigue no headache, no visual changes no speech or swallowing issues no chest pain, pressure or palpitations continues to get shortness of breath, but no cough or wheezes no abdominal pain, nausea or vomiting, diarrhea or constipation no dysuria, hematuria or frequency no focal joint pain or swelling no back pain, CVA tenderness or radicular pain no bruising, bleeding or rashes no focal signs of weakness or numbness or altered sensation no complaints of anxiety or depression.. Physical Exam Physical Exam: The patient appeared well nourished and normally developed. Vital signs as documented. Head exam is normocephalic atraumatic Neck is without JVD, thyromegaly, or carotid bruits. Lungs are rales in both lung gutiérrez half the way up no accessory muscle use Cardiac exam, Rhythm is regular.. No murmurs, rubs or gallops. Abdominal exam reveals normal bowel sounds, soft non tender, no masses Extremities are nonedematous and both pedal pulses are present Neurologic exam is alert and oriented, no focal loss of strength or sensation Skin is without bruises or rashes Psychologically is without concerns for anxiety or depression.. Results & Data Results & Data ([facility]) Vital Signs (Past 12 Hours) Vital Signs Temp Pulse Pulse Resp BP Pulse Ox 05/15/21 15:48 98.6 F 56 L 18 126/72 93 05/15/21 15:26 50 L 05/15/21 12:10 60 05/15/21 11:55 98.2 F 61 18 110/68 93 05/15/21 11:47 91 05/15/21 08:47 91 05/15/21 07:44 98.1 F 57 L 19 113/64 90 PG Care Time/CCT Total # of Minutes Spent Total Time Spent with Patient: Total time spent is greater than 50% in coordination of care (as documented) at patient's floor/unit and/or counseling patient: Coding Level of Care Code 38359 Subseq Hosp Care Lvl 2 Diagnoses Pneumonia due to COVID-19 virus U07.1; J12.82 Acute respiratory failure with hypoxia J96.01 Transaminitis R74.01 Impaired fasting glucose R73.01 History of stroke Z86.73 Obesity E66.9 PFO (patent foramen ovale) Q21.1 Hypercholesterolemia E78.00 Allergic rhinitis J30.9
[2021-05-15] MEDS: LORATADINE 10 MG TAB PO SCH (21:01)
[2021-05-15] MEDS: ATORVASTATIN 40 MG TAB PO SCH (21:01)
[2021-05-15] MEDS: ASPIRIN 81 MG ECTAB PO SCH (21:01)
[2021-05-15] MEDS: PANTOprazole 40 MG TAB PO SCH (21:01)
[2021-05-16] MEDS: ENOXAPARIN 80 MG/0.8 ML SYR SQ SCH ×2 (05:45→17:55)
[2021-05-16] MEDS: INSULIN ASPART 100 UNITS/ML 3 ML PEN SC SCH ×5 (08:18→21:04)
[2021-05-16] MEDS: dexAMETHasone 6 MG in SYRINGE 0 ML IV SCH (08:18)
[2021-05-16] MEDS: MULTIVITAMIN TAB PO SCH (08:18)
--- NOTE | 2021-05-16 14:55 | Hospitalist Progress Note ---
Date of Service May 16, 2021 Assessment & Plan (1) Pneumonia due to COVID-19 virus: Plan: On day 11 of symptoms at the time of admission. Here with bilateral infiltrates on chest x-ray and hypoxia in the mid to upper 80s on pulse ox. dexamethasone 6 mg IV once daily x 10 days, change to PO on discharge -He is out of the time window for Remdesivir and does not qualify for baricitinib by having a low CRP, at this point oxygen requirements are lessening and do not feel it is indicated -continue to reinforce incentive spirometer, flutter valve -Encouraged prone positioning which he says he is definitely able to do as much as possible -Continue supplemental O2 to keep pulse ox greater than 90% today he is on 2L, very stable, plan for 2 step in the morning and d/c to home to complete course of dexamethasone (2) Acute respiratory failure with hypoxia: Plan: Secondary to Covid-19 PNA down to 2L today, no distress, goal is to go home tomorrow with oxygen (3) Transaminitis: Plan: Mild elevation of AST likely secondary to Covid-19 infection resolved on day 1 (4) Impaired fasting glucose: Plan: Add Accu-Cheks, NovoLog SSI as needed 6.3 hemoglobin A1c ADA diet sugars stable today, no hyperglycemia (5) History of stroke: Plan: With history of posterior circulation stroke it sounds like based on his description of vertigo when he pointed to the back of his head of where the stroke was found when he was hospitalized at [place] in 2016 Continue aspirin, statin (6) Obesity: Plan: BMI 40.3 which is a significant risk factor for progression to severe disease Encouraged weight loss consider Xarelto on discharge (7) PFO (patent foramen ovale): Plan: Noted, no specific treatment for this (8) Hypercholesterolemia: Plan: Continue statin, aspirin (9) Allergic rhinitis: Plan: Continue loratadine, no acute issues Plan: DVT prophylaxis-Lovenox 0.5 mg/KG SQ twice daily Full code His would be his decision maker if he is unable to make decisions. Admission and Anticipated Discharge Date Admission Date: May 12, 2021 Subjective patient is doing really well, down to 2L, sitting up in a chair he admits that he gets short of breath and desaturates walking to bathroom discussed getting a 2 step tomorrow and going home, he agrees with plan he is eating better, no diarrhea, no fever, minimal cough reviewed the chart, has been here since 06/11 Review of Systems Review of Systems: All systems reviewed & are unremarkable except as noted in Subjective Physical Exam Physical Exam: General: well developed, well nourished, no acute distress, comfortable Neck: supple, trachea midline, normal thyroid Lungs: clear to auscultation bilaterally, normal respiratory effort, no accessory muscle use, no distress Heart: regular S1 and S2, no murmur, peripheral pulses normal, capillary refill normal, no edema Abdomen: soft, NT, ND, + BS, no hepatomegaly, normal to percussion Extremities: normal in appearance, no cyanosis, no petechiae, strength is 5/5 bilaterally Neuro: awake, cooperative, moves all extremities, no focal motor deficits, CN II-XII intact, sensation in extremities intact, normal speech Skin: warm, dry, no rash, normal turgor Psych: Awake, alert oriented x 3, euthymic affect Results & Data Results & Data ([facility]) Vital Signs (Past 12 Hours) Vital Signs Temp Pulse Pulse Pulse Resp BP Pulse Ox 05/16/21 12:23 36.5 C 73 14 126/72 90 05/16/21 09:00 58 L 05/16/21 06:36 36.5 C 70 18 123/68 91 05/16/21 04:18 36.5 C 75 19 116/59 L 92 Laboratory Results Laboratory Results - last 24 hr 05/15/21 05/15/21 05/16/21 17:15 20:23 07:50 POC Glucose 124 H 126 H 95 05/16/21 12:22 POC Glucose 133 H Medications Administered Current Inpatient Medications Acetaminophen (Acetaminophen 325 Mg Tab) 650 mg PO Q4H PRN PRN Reason: Pain or Fever Stop: 06/11/21 14:23 Last Admin: 05/13/21 03:07 Dose: 650 mg Documented by: Albuterol (Albut/Ipratrop 3mg/0.5mg Neb 3 Ml Vial) 3 ml NEB Q4 PRN PRN Reason: Shortness Of Breath Or Wheezing Stop: 06/12/21 10:03 Aspirin (Aspirin 81 Mg Ectab) 81 mg PO HS GEOVANNA Stop: 06/11/21 20:59 Last Admin: 05/15/21 21:01 Dose: 81 mg Documented by: Atorvastatin Calcium (Atorvastatin 40 Mg Tab) 40 mg PO HS GEOVANNA Stop: 06/11/21 20:59 Last Admin: 05/15/21 21:01 Dose: 40 mg Documented by: Dextrose (Dextrose 50% 50 Ml Syringe) 25 - 50 ml IV UD PRN; Protocol PRN Reason: Hypoglycemia Protocol Stop: 06/11/21 14:23 Enoxaparin Sodium (Enoxaparin 80 Mg/0.8 Ml Syr) 70 mg SQ Q12H GEOVANNA Stop: 05/28/21 22:00 Last Admin: 05/16/21 05:45 Dose: 70 mg Documented by: Glucagon (Glucagon For Inj 1 Mg Vial) 1 mg SQ UD PRN; Protocol PRN Reason: Hypoglycemia Protocol Stop: 06/11/21 14:23 Glucose (Glucose 10 Tabs/Tube) 4 - 8 tabs PO UD PRN; Protocol PRN Reason: Hypoglycemia Protocol Stop: 06/11/21 14:23 Glucose (Glucose 40% Gel 15 Gm Tube) 15 - 30 gm PO UD PRN; Protocol PRN Reason: Hypoglycemia Protocol Stop: 06/11/21 14:23 Dexamethasone 6 mg/ Syringe 1.5 mls @ 1 mls/min IV QAM GEOVANNA Stop: 06/12/21 08:59 Last Admin: 05/16/21 08:18 Dose: 1 mls/min Documented by: Insulin Aspart (Insulin Aspart 100 Units/Ml 3 Ml Pen) 0 units SC ACHS GEOVANNA Stop: 06/11/21 14:23 Last Admin: 05/16/21 12:39 Dose: Not Given Documented by: Loratadine (Loratadine 10 Mg Tab) 10 mg PO HS [facility] Stop: 06/11/21 20:59 Last Admin: 05/15/21 21:01 Dose: 10 mg Documented by: Miscellaneous (Carbohydrates For Hypoglycemia ) 15 - 30 gm PO UD PRN PRN Reason: Hypoglycemia Protocol Stop: 06/11/21 14:23 Multivitamins (Multivitamin Tab) 1 tab PO QAM [facility] Stop: 06/12/21 08:59 Last Admin: 05/16/21 08:18 Dose: 1 tab Documented by: Ondansetron HCl (Ondansetron Inj 2 Mg/Ml 2 Ml Vial) 4 mg IV Q6H PRN PRN Reason: Nausea Stop: 06/11/21 14:23 Pantoprazole Sodium (Pantoprazole 40 Mg Tab) 40 mg PO HS GEOVANNA Stop: 06/11/21 20:59 Last Admin: 05/15/21 21:01 Dose: 40 mg Documented by: Polyethylene Glycol (Polyethylene (Miralax) 17 Gm Pack) 17 gm PO DAILY PRN PRN Reason: Constipation Stop: 06/11/21 14:23 PG Care Time/CCT Total # of Minutes Spent Total Time Spent with Patient: Total time spent is greater than 50% in coordination of care (as documented) at patient's floor/unit and/or counseling patient: Coding Level of Care Code 58746 Subseq Hosp Care Lvl 2 Diagnoses Pneumonia due to COVID-19 virus U07.1; J12.82 Acute respiratory failure with hypoxia J96.01 Transaminitis R74.01 Impaired fasting glucose R73.01 History of stroke Z86.73 Obesity E66.9 PFO (patent foramen ovale) Q21.1 Hypercholesterolemia E78.00 Allergic rhinitis J30.9
[2021-05-16] MEDS: ATORVASTATIN 40 MG TAB PO SCH (19:30)
[2021-05-16] MEDS: LORATADINE 10 MG TAB PO SCH (19:30)
[2021-05-16] MEDS: PANTOprazole 40 MG TAB PO SCH (19:30)
[2021-05-16] MEDS: ASPIRIN 81 MG ECTAB PO SCH (19:30)
[2021-05-17] MEDS: ENOXAPARIN 80 MG/0.8 ML SYR SQ SCH ×2 (05:25→17:21)
[2021-05-17] MEDS: INSULIN ASPART 100 UNITS/ML 3 ML PEN SC SCH ×4 (08:18→20:57)
[2021-05-17] MEDS: dexAMETHasone 6 MG in SYRINGE 0 ML IV SCH (08:51)
[2021-05-17] MEDS: MULTIVITAMIN TAB PO SCH (08:51)
[2021-05-17 09:06] LABS: BUN Creatinine Ratio 23.2 (10-20); Blood Urea Nitrogen 23 mg/dl (7-18); C Reactive Protein < 0.29 mg/dl (0-0.29); Calcium 8.9 mg/dl (8.5-10.1); Carbon Dioxide 23 mmol/L (21-32); Chloride 109 mmol/L (98-107); Creatinine Clr Calc Pharmacy 108.5 ml/min; Est GFR (African American) 93.9 ml/min; Glucose 94 mg/dl (70-99); Potassium 4.4 mmol/L (3.5-5.1); Sodium 139 mmol/L (136-145)
--- NOTE | 2021-05-17 12:28 | Hospitalist Progress Note ---
Date of Service May 17, 2021 Assessment & Plan (1) Pneumonia due to COVID-19 virus: Plan: On day 11 of symptoms at the time of admission. Here with bilateral infiltrates on chest x-ray and hypoxia in the mid to upper 80s on pulse ox. dexamethasone 6 mg IV once daily x 10 days, change to PO on discharge -He is out of the time window for Remdesivir and does not qualify for baricitinib, CRP is < 1 -continue to reinforce incentive spirometer, flutter valve give a dose of Lasix 20mg IV this afternoon, see if he can diurese and improve oxygen requirements -Encouraged prone positioning which he says he is definitely able to do as much as possible -Continue supplemental O2 to keep pulse ox greater than 90% failed 2 step today, was 85% on 6L and short of breath try again in 1-2 days (2) Acute respiratory failure with hypoxia: Plan: Secondary to Covid-19 PNA on 2-3L at rest today, failed 2 step give Lasix to see if diuresis helps (3) Transaminitis: Plan: Mild elevation of AST likely secondary to Covid-19 infection resolved on day 1 (4) Impaired fasting glucose: Plan: Add Accu-Cheks, NovoLog SSI as needed 6.3 hemoglobin A1c ADA diet sugars stable today, no hyperglycemia (5) History of stroke: Plan: With history of posterior circulation stroke it sounds like based on his description of vertigo when he pointed to the back of his head of where the stroke was found when he was hospitalized at [facility] in 2016 Continue aspirin, statin (6) Obesity: Plan: BMI 40.3 which is a significant risk factor for progression to severe disease Encouraged weight loss consider Xarelto on discharge (7) PFO (patent foramen ovale): Plan: Noted, no specific treatment for this (8) Hypercholesterolemia: Plan: Continue statin, aspirin (9) Allergic rhinitis: Plan: Continue loratadine, no acute issues Plan: DVT prophylaxis-Lovenox 0.5 mg/KG SQ twice daily Full code His would be his decision maker if he is unable to make decisions. Admission and Anticipated Discharge Date Admission Date: May 12, 2021 Subjective patient is frustrated, he did not do as well with his 2 step this morning as he hoped he was stable on 2L at rest but was 86% on 6L on exertion and working to breathe he wants to go home, has been here 5 days encouraged him to be patient, 1-2 more days will make a difference will try a dose of Lasix 20mg IV, see if oxygenation improves, he agrees he is eating well, sleeping well Review of Systems Review of Systems: All systems reviewed & are unremarkable except as noted in Subjective Respiratory: + dyspnea on exertion Physical Exam 2 Physical Exam: General: well developed, well nourished, no acute distress, comfortable Neck: supple, trachea midline, normal thyroid Lungs: clear to auscultation bilaterally, normal respiratory effort, no accessory muscle use, no distress Heart: regular S1 and S2, no murmur, peripheral pulses normal, capillary refill normal, no edema Abdomen: soft, NT, ND, + BS, no hepatomegaly, normal to percussion Extremities: normal in appearance, no cyanosis, no petechiae, strength is 5/5 bilaterally Neuro: awake, cooperative, moves all extremities, no focal motor deficits, CN II-XII intact, sensation in extremities intact, normal speech Skin: warm, dry, no rash, normal turgor Psych: Awake, alert oriented x 3, euthymic affect Results & Data Results & Data ([facility]) Vital Signs (Past 12 Hours) Vital Signs Temp Pulse Pulse Pulse Pulse Pulse Pulse 05/17/21 11:36 36.6 C 05/17/21 08:19 73 59 L 63 108 H 101 H 105 H 05/17/21 08:00 37.0 C 05/17/21 03:15 36.6 C Pulse Pulse Resp Resp Resp Resp Resp 05/17/21 11:36 80 19 05/17/21 08:19 68 16 16 16 20 05/17/21 08:00 60 19 05/17/21 03:15 52 L 19 Resp Resp Resp BP BP Pulse Ox Pulse Ox 05/17/21 11:36 105/62 92 05/17/21 08:19 20 20 16 86 L 05/17/21 08:00 110/66 90 05/17/21 03:15 115/66 91 Pulse Ox Pulse Ox Pulse Ox Pulse Ox Pulse Ox Pulse Ox 05/17/21 11:36 05/17/21 08:19 88 L 91 85 L 84 L 83 L 85 L 05/17/21 08:00 05/17/21 03:15 Laboratory Results Laboratory Results - last 24 hr 05/16/21 05/16/21 05/17/21 17:12 20:25 08:02 Sodium Potassium Chloride Carbon Dioxide Anion Gap BUN Creatinine Est Cr Clr Drug Dosing Est GFR ( Amer) Est GFR (Non-Af Amer) BUN/Creatinine Ratio Glucose POC Glucose 115 H 146 H 87 Calcium C-Reactive Protein 05/17/21 05/17/21 08:25 11:34 Sodium 139 Potassium 4.4 Chloride 109 H Carbon Dioxide 23 Anion Gap 7.0 BUN 23 H Creatinine 1.01 Est Cr Clr Drug Dosing 108.5 Est GFR ( Amer) 93.9 Est GFR (Non-Af Amer) 81.0 BUN/Creatinine Ratio 23.2 H Glucose 94 POC Glucose 156 H Calcium 8.9 C-Reactive Protein < 0.29 Medications Administered Current Inpatient Medications Acetaminophen (Acetaminophen 325 Mg Tab) 650 mg PO Q4H PRN PRN Reason: Pain or Fever Stop: 06/11/21 14:23 Last Admin: 05/13/21 03:07 Dose: 650 mg Documented by: Albuterol (Albut/Ipratrop 3mg/0.5mg Neb 3 Ml Vial) 3 ml NEB Q4 PRN PRN Reason: Shortness Of Breath Or Wheezing Stop: 06/12/21 10:03 Aspirin (Aspirin 81 Mg Ectab) 81 mg PO HS GEOVANNA Stop: 06/11/21 20:59 Last Admin: 05/16/21 19:30 Dose: 81 mg Documented by: Atorvastatin Calcium (Atorvastatin 40 Mg Tab) 40 mg PO HS GEOVANNA Stop: 06/11/21 20:59 Last Admin: 05/16/21 19:30 Dose: 40 mg Documented by: Dextrose (Dextrose 50% 50 Ml Syringe) 25 - 50 ml IV UD PRN; Protocol PRN Reason: Hypoglycemia Protocol Stop: 06/11/21 14:23 Enoxaparin Sodium (Enoxaparin 80 Mg/0.8 Ml Syr) 70 mg SQ Q12H GEOVANNA Stop: 05/28/21 22:00 Last Admin: 05/17/21 05:25 Dose: 70 mg Documented by: Furosemide (Furosemide Inj 20 Mg/2 Ml Vial) 20 mg IV ONE ONE Stop: 05/17/21 12:34 Glucagon (Glucagon For Inj 1 Mg Vial) 1 mg SQ UD PRN; Protocol PRN Reason: Hypoglycemia Protocol Stop: 06/11/21 14:23 Glucose (Glucose 10 Tabs/Tube) 4 - 8 tabs PO UD PRN; Protocol PRN Reason: Hypoglycemia Protocol Stop: 06/11/21 14:23 Glucose (Glucose 40% Gel 15 Gm Tube) 15 - 30 gm PO UD PRN; Protocol PRN Reason: Hypoglycemia Protocol Stop: 06/11/21 14:23 Dexamethasone 6 mg/ Syringe 1.5 mls @ 1 mls/min IV QAM GEOVANNA Stop: 06/12/21 08:59 Last Admin: 05/17/21 08:51 Dose: 1 mls/min Documented by: Insulin Aspart (Insulin Aspart 100 Units/Ml 3 Ml Pen) 0 units SC ACHS GEOAVNNA Stop: 06/11/21 14:23 Last Admin: 05/17/21 12:35 Dose: Not Given Documented by: Loratadine (Loratadine 10 Mg Tab) 10 mg PO HS [facility] Stop: 06/11/21 20:59 Last Admin: 05/16/21 19:30 Dose: 10 mg Documented by: Miscellaneous (Carbohydrates For Hypoglycemia ) 15 - 30 gm PO UD PRN PRN Reason: Hypoglycemia Protocol Stop: 06/11/21 14:23 Multivitamins (Multivitamin Tab) 1 tab PO QAM [facility] Stop: 06/12/21 08:59 Last Admin: 05/17/21 08:51 Dose: 1 tab Documented by: Ondansetron HCl (Ondansetron Inj 2 Mg/Ml 2 Ml Vial) 4 mg IV Q6H PRN PRN Reason: Nausea Stop: 06/11/21 14:23 Pantoprazole Sodium (Pantoprazole 40 Mg Tab) 40 mg PO HS [facility] Stop: 06/11/21 20:59 Last Admin: 05/16/21 19:30 Dose: 40 mg Documented by: Polyethylene Glycol (Polyethylene (Miralax) 17 Gm Pack) 17 gm PO DAILY PRN PRN Reason: Constipation Stop: 06/11/21 14:23 PG Care Time/CCT Total # of Minutes Spent Total Time Spent with Patient: Total time spent is greater than 50% in coordination of care (as documented) at patient's floor/unit and/or counseling patient: Coding Level of Care Code 61705 Subseq Hosp Care Lvl 2 Diagnoses Pneumonia due to COVID-19 virus U07.1; J12.82 Acute respiratory failure with hypoxia J96.01 Transaminitis R74.01 Impaired fasting glucose R73.01 History of stroke Z86.73 Obesity E66.9 PFO (patent foramen ovale) Q21.1 Hypercholesterolemia E78.00 Allergic rhinitis J30.9
[2021-05-17] MEDS ORDERED: FUROSEMIDE INJ 20 MG/2 ML VIAL IV ONE (12:33)
[2021-05-17] MEDS: ATORVASTATIN 40 MG TAB PO SCH (20:30)
[2021-05-17] MEDS: PANTOprazole 40 MG TAB PO SCH (20:31)
[2021-05-17] MEDS: LORATADINE 10 MG TAB PO SCH (20:31)
[2021-05-17] MEDS: ASPIRIN 81 MG ECTAB PO SCH (20:31)
[2021-05-18] MEDS: ENOXAPARIN 80 MG/0.8 ML SYR SQ SCH ×2 (05:39→17:31)
[2021-05-18 07:56] LABS: Hematocrit (blood only) 42.8 % (42-52); Hemoglobin 14.8 g/dL (14.0-18.0); Mean Corpuscular Hemoglobin 29.2 pg (25-34); Mean Corpuscular Hgb Conc 34.6 g/dL (32-36); Mean Corpuscular Volume 84.4 fL (80-100); Mean Platelet Volume 10.1 fL (7.4-10.4); Platelet Count 369 K/uL (130-400); RDW Coefficient of Variation 13.8 % (11.5-14.5); RDW Standard Deviation 42.6 fL (36.4-46.3); Red Blood Count 5.07 M/uL (4.7-6.1); White Blood Count 11.49 K/uL (4.8-10.8)
[2021-05-18] MEDS ORDERED: FUROSEMIDE INJ 20 MG/2 ML VIAL IV ONE (08:07)
[2021-05-18] MEDS ORDERED: POTASSIUM CHLORIDE CRTAB 20 MEQ TABCR PO STA (08:08)
[2021-05-18 08:32] LABS: Est GFR (African American) 96.2 ml/min
[2021-05-18] MEDS: INSULIN ASPART 100 UNITS/ML 3 ML PEN SC SCH ×4 (08:43→21:53)
[2021-05-18] MEDS: dexAMETHasone 6 MG in SYRINGE 0 ML IV SCH (08:45)
[2021-05-18] MEDS: MULTIVITAMIN TAB PO SCH (08:45)
--- NOTE | 2021-05-18 11:59 | Hospitalist Progress Note ---
Date of Service May 18, 2021 Assessment & Plan (1) Pneumonia due to COVID-19 virus: Plan: On day 11 of symptoms at the time of admission. Here with bilateral infiltrates on chest x-ray and hypoxia in the mid to upper 80s on pulse ox. dexamethasone 6 mg IV once daily x 10 days, change to PO on discharge -He is out of the time window for Remdesivir and does not qualify for baricitinib, CRP is < 1 -continue to reinforce incentive spirometer, flutter valve continue Lasix 20mg IV daily, good response the past two days -Encouraged prone positioning which he says he is definitely able to do as much as possible -Continue supplemental O2 to keep pulse ox greater than 90% failed 2 step /, was 85% on 6L and short of breath try again tomorrow will get CXR in morning, BMP, CRP (2) Acute respiratory failure with hypoxia: Plan: Secondary to Covid-19 PNA on 2L at rest today, failed 2 step on 05/17, try again tomorrow Lasix daily (3) Transaminitis: Plan: Mild elevation of AST likely secondary to Covid-19 infection resolved on day 1 (4) Impaired fasting glucose: Plan: Add Accu-Cheks, NovoLog SSI as needed 6.3 hemoglobin A1c ADA diet sugars stable today, no hyperglycemia (5) History of stroke: Plan: With history of posterior circulation stroke it sounds like based on his description of vertigo when he pointed to the back of his head of where the stroke was found when he was hospitalized at [place] in 2016 Continue aspirin, statin (6) Obesity: Plan: BMI 40.3 which is a significant risk factor for progression to severe disease Encouraged weight loss consider Xarelto on discharge (7) PFO (patent foramen ovale): Plan: Noted, no specific treatment for this (8) Hypercholesterolemia: Plan: Continue statin, aspirin (9) Allergic rhinitis: Plan: Continue loratadine, no acute issues Plan: DVT prophylaxis-Lovenox 0.5 mg/KG SQ twice daily Full code His would be his decision maker if he is unable to make decisions. Admission and Anticipated Discharge Date Admission Date: May 12, 2021 Subjective patient doing well, sitting up in a chair he is 95% on 3L, will drop him to 2L making a lot of urine with the Lasix eating well, no nausea, had a BM last night RN said he dropped his saturations again when walking this morning discussed with him, will get CXR in morning, labs including CRP will try a 2 step and try to get him home tomorrow he is very hopeful, wants to go Review of Systems Review of Systems: All systems reviewed & are unremarkable except as noted in Subjective Respiratory: + dyspnea and + dyspnea on exertion Physical Exam Physical Exam: General: well developed, well nourished, no acute distress, comfortable Neck: supple, trachea midline, normal thyroid Lungs: clear to auscultation bilaterally, normal respiratory effort, no accessory muscle use, no distress Heart: regular S1 and S2, no murmur, peripheral pulses normal, capillary refill normal, no edema Abdomen: soft, NT, ND, + BS, no hepatomegaly, normal to percussion Extremities: normal in appearance, no cyanosis, no petechiae, strength is 5/5 bilaterally Neuro: awake, cooperative, moves all extremities, no focal motor deficits, CN II-XII intact, sensation in extremities intact, normal speech Skin: warm, dry, no rash, normal turgor Psych: Awake, alert oriented x 3, euthymic affect Results & Data Results & Data ([facility]) Vital Signs (Past 12 Hours) Vital Signs Temp Pulse Pulse Resp BP BP Pulse Ox 05/18/21 07:59 36.7 C 67 21 105/65 91 05/18/21 07:00 52 L 05/18/21 03:12 36.6 C 60 18 114/71 93 Laboratory Results Laboratory Results - last 24 hr 05/17/21 05/17/21 05/18/21 16:58 20:14 07:42 WBC 11.49 H RBC 5.07 Hgb 14.8 Hct 42.8 MCV 84.4 MCH 29.2 MCHC 34.6 RDW Std Deviation 42.6 RDW Coeff of Nereida 13.8 Plt Count 369 MPV 10.1 Creatinine Est Cr Clr Drug Dosing Est GFR ( Amer) Est GFR (Non-Af Amer) POC Glucose 149 H 123 H 05/18/21 05/18/21 05/18/21 07:42 07:58 11:58 WBC RBC Hgb Hct MCV MCH MCHC RDW Std Deviation RDW Coeff of Nereida Plt Count MPV Creatinine 0.99 Est Cr Clr Drug Dosing 110.0 Est GFR ( Amer) 96.2 Est GFR (Non-Af Amer) 83.0 POC Glucose 89 149 H Medications Administered Current Inpatient Medications Acetaminophen (Acetaminophen 325 Mg Tab) 650 mg PO Q4H PRN PRN Reason: Pain or Fever Stop: 06/11/21 14:23 Last Admin: 05/13/21 03:07 Dose: 650 mg Documented by: Albuterol (Albut/Ipratrop 3mg/0.5mg Neb 3 Ml Vial) 3 ml NEB Q4 PRN PRN Reason: Shortness Of Breath Or Wheezing Stop: 06/12/21 10:03 Aspirin (Aspirin 81 Mg Ectab) 81 mg PO HS GEOVANNA Stop: 06/11/21 20:59 Last Admin: 05/17/21 20:31 Dose: 81 mg Documented by: Atorvastatin Calcium (Atorvastatin 40 Mg Tab) 40 mg PO HS GEOVANNA Stop: 06/11/21 20:59 Last Admin: 05/17/21 20:30 Dose: 40 mg Documented by: Dextrose (Dextrose 50% 50 Ml Syringe) 25 - 50 ml IV UD PRN; Protocol PRN Reason: Hypoglycemia Protocol Stop: 06/11/21 14:23 Enoxaparin Sodium (Enoxaparin 80 Mg/0.8 Ml Syr) 70 mg SQ Q12H GEOVANNA Stop: 05/28/21 22:00 Last Admin: 05/18/21 05:39 Dose: 70 mg Documented by: Glucagon (Glucagon For Inj 1 Mg Vial) 1 mg SQ UD PRN; Protocol PRN Reason: Hypoglycemia Protocol Stop: 06/11/21 14:23 Glucose (Glucose 10 Tabs/Tube) 4 - 8 tabs PO UD PRN; Protocol PRN Reason: Hypoglycemia Protocol Stop: 06/11/21 14:23 Glucose (Glucose 40% Gel 15 Gm Tube) 15 - 30 gm PO UD PRN; Protocol PRN Reason: Hypoglycemia Protocol Stop: 06/11/21 14:23 Dexamethasone 6 mg/ Syringe 1.5 mls @ 1 mls/min IV QAM GEOVANNA Stop: 06/12/21 08:59 Last Admin: 05/18/21 08:45 Dose: 1 mls/min Documented by: Insulin Aspart (Insulin Aspart 100 Units/Ml 3 Ml Pen) 0 units SC ACHS GEOVANNA Stop: 06/11/21 14:23 Last Admin: 05/18/21 08:43 Dose: Not Given Documented by: Loratadine (Loratadine 10 Mg Tab) 10 mg PO HS GEOVANNA Stop: 06/11/21 20:59 Last Admin: 05/17/21 20:31 Dose: 10 mg Documented by: Miscellaneous (Carbohydrates For Hypoglycemia ) 15 - 30 gm PO UD PRN PRN Reason: Hypoglycemia Protocol Stop: 06/11/21 14:23 Multivitamins (Multivitamin Tab) 1 tab PO QAM GEOVANNA Stop: 06/12/21 08:59 Last Admin: 05/18/21 08:45 Dose: 1 tab Documented by: Ondansetron HCl (Ondansetron Inj 2 Mg/Ml 2 Ml Vial) 4 mg IV Q6H PRN PRN Reason: Nausea Stop: 06/11/21 14:23 Pantoprazole Sodium (Pantoprazole 40 Mg Tab) 40 mg PO HS [facility] Stop: 06/11/21 20:59 Last Admin: 05/17/21 20:31 Dose: 40 mg Documented by: Polyethylene Glycol (Polyethylene (Miralax) 17 Gm Pack) 17 gm PO DAILY PRN PRN Reason: Constipation Stop: 06/11/21 14:23 PG Care Time/CCT Total # of Minutes Spent Total Time Spent with Patient: Total time spent is greater than 50% in coordination of care (as documented) at patient's floor/unit and/or counseling patient: Coding Level of Care Code 22758 Subseq Hosp Care Lvl 2 Diagnoses Pneumonia due to COVID-19 virus U07.1; J12.82 Acute respiratory failure with hypoxia J96.01 Transaminitis R74.01 Impaired fasting glucose R73.01 History of stroke Z86.73 Obesity E66.9 PFO (patent foramen ovale) Q21.1 Hypercholesterolemia E78.00 Allergic rhinitis J30.9
[2021-05-18] MEDS: LORATADINE 10 MG TAB PO SCH (19:54)
[2021-05-18] MEDS: PANTOprazole 40 MG TAB PO SCH (19:54)
[2021-05-18] MEDS: ATORVASTATIN 40 MG TAB PO SCH (19:54)
[2021-05-18] MEDS: ASPIRIN 81 MG ECTAB PO SCH (19:54)
[2021-05-18] MEDS ORDERED: SODIUM CHLORIDE 0.65% NA SOLN 45 ML (OCEAN) PRN (22:08)
[2021-05-19] MEDS: ENOXAPARIN 80 MG/0.8 ML SYR SQ SCH (06:04)
[2021-05-19 06:55] LABS: BUN Creatinine Ratio 24.4 (10-20); Blood Urea Nitrogen 25 mg/dl (7-18); Carbon Dioxide 24 mmol/L (21-32); Chloride 107 mmol/L (98-107); Creatinine Clr Calc Pharmacy 106.7 ml/min; Est GFR (African American) 92.8 ml/min; Est GFR (Non-African American) 80.1 ml/min; Glucose 103 mg/dl (70-99); Sodium 137 mmol/L (136-145)
[2021-05-19 06:58] LABS: C Reactive Protein < 0.29 mg/dl (0-0.29)
--- NOTE | 2021-05-19 08:00 | XRay Report ---
XR chest 1V portable CLINICAL HISTORY: covid, hypoxia. Follow-up bilateral airspace opacities COMPARISON STUDY: 05/12/2021 TECHNIQUE: 1 view of the chest FINDINGS: Single frontal view of the chest demonstrates the cardiomediastinal silhouette to be within normal li mits. Compared to previous examination, there is evidence for underlying COPD with decrease in inters titial and alveolar opacities bilaterally. There is no evidence for pleural effusion. There is no esha dence for vascular congestion. There is no acute osseous pathology. IMPRESSION: COPD with interval improvement of bilateral interstitial and alveolar opacities. ACT 112: Negative or not required by law. Electronically signed by: Price Liang M.D. 05/19/2021 7:58 AM
[2021-05-19] MEDS: MULTIVITAMIN TAB PO SCH (08:12)
[2021-05-19] MEDS: INSULIN ASPART 100 UNITS/ML 3 ML PEN SC SCH ×2 (08:13→12:36)
[2021-05-19] MEDS: dexAMETHasone 6 MG in SYRINGE 0 ML IV SCH (08:14)
--- NOTE | 2021-05-19 11:28 | Discharge Summary ---
Date of Service May 19, 2021 Admission HPI Per Admitting Provider This patient is a 60-year-old male with a history of allergic rhinitis, hypercholesterolemia, impaired fasting glucose, posterior CVA without residual deficits, PFO, BPPV, GERD, and obesity, who presents to the ER on day 11 of his Covid symptoms with worsening shortness of breath. He is not vaccinated for Covid-19. He has had decreased appetite and p.o. intake with associated nausea, no vomiting or diarrhea, no abdominal pain He had been checking his home pulse ox and noted it to be in the mid to high 80s range at home over the last 2 days He has been using [id number] medications at home. In the ER, his pulse ox was found to be 88% on room air, but vital signs otherwise stable. His CBC was normal except for mild lymphopenia, CMP was normal except for mild elevation of AST, troponin was negative, and his Covid test was positive on 05/04. His flu a and B test was negative on 05/04. These were not repeated today. His chest x- ray showed patchy interstitial and alveolar opacities bilaterally characteristic of viral type pneumonitis consistent with Covid-19 pneumonia. In the ER, he was given dexamethasone 6 mg IV x1 and 1 L of normal saline. He reported already feeling significantly better after these interventions along with being on 2 L nasal cannula. He feels his appetite has returned after these interventions as well and is finally feeling hungry after 1 week of having no appetite. He will be admitted for Covid-19 with pneumonia and acute respiratory failure with hypoxia. Principal Diagnosis COVID 19 pneumonia Acute hypoxic respiratory failure, resolved Discharge Exam General: well developed, well nourished, no acute distress, comfortable Neck: supple, trachea midline, normal thyroid Lungs: clear to auscultation bilaterally, normal respiratory effort, no accessory muscle use, no distress Heart: regular S1 and S2, no murmur, peripheral pulses normal, capillary refill normal, no edema Abdomen: soft, NT, ND, + BS, no hepatomegaly, normal to percussion Extremities: normal in appearance, no cyanosis, no petechiae, strength is 5/5 bilaterally Neuro: awake, cooperative, moves all extremities, no focal motor deficits, CN II-XII intact, sensation in extremities intact, normal speech Skin: warm, dry, no rash, normal turgor Psych: Awake, alert oriented x 3, euthymic affect Discharge Data Allergies Allergy/AdvReac Type Severity Reaction Status Date / Time No Known Allergies Allergy Verified 05/12/21 10:49 Consultations 05/12/21 10:36 ED Decision to Admit Stat Hospital Course (1) Pneumonia due to COVID-19 virus: On day 11 of symptoms at the time of admission. Here with bilateral infiltrates on chest x-ray and hypoxia in the mid to upper 80s on pulse ox. dexamethasone 6 mg IV once daily x 10 days, change to PO on discharge to finish 10 days -He is out of the time window for Remdesivir and does not qualify for baricitinib, CRP is < 1 -continue to reinforce incentive spirometer, flutter valve good response to Lasix the past few days, no longer needs diuretic -Encouraged prone positioning which he says he is definitely able to do as much as possible -Continue supplemental O2 to keep pulse ox greater than 90% passed 2 step on day of discharge, no oxygen needs at rest and exertion (2) Acute respiratory failure with hypoxia: Secondary to Covid-19 PNA resolved, passed 2 step on day of discharge feeling much better (3) Transaminitis: Mild elevation of AST likely secondary to Covid-19 infection resolved on day 1 (4) Impaired fasting glucose: Add Accu-Cheks, NovoLog SSI as needed 6.3 hemoglobin A1c ADA diet sugars stable today, no hyperglycemia (5) History of stroke: With history of posterior circulation stroke it sounds like based on his description of vertigo when he pointed to the back of his head of where the stroke was found when he was hospitalized at [facility] in 2016 Continue aspirin, statin (6) Obesity: BMI 40.3 which is a significant risk factor for progression to severe disease Encouraged weight loss consider Xarelto on discharge (7) PFO (patent foramen ovale): Noted, no specific treatment for this (8) Hypercholesterolemia: Continue statin, aspirin (9) Allergic rhinitis: Continue loratadine, no acute issues DVT prophylaxis-Lovenox 0.5 mg/KG SQ twice daily Full code His would be his decision maker if he is unable to make decisions. Total Time Total Time Spent Total Time Spent (In Minutes): 32 minutes Discharge Plan Discharge Items Patient Disposition: Home - Self-Care Reason For Visit: COVID-19 PNA, HYPOXIA Discharge Diagnosis: COVID 19 pneumonia Acute hypoxic respiratory failure Condition on Discharge: Good Goals: complete short course of dexamethasone gradually wean off oxygen stay well nourished, well hydrated Activity: Resume your previous activity Driving/Machine Use: No limitations Weightbearing: Full weightbearing Non-emergency contact: Primary Care Provider Call non-emergency contact if: you have any medication questions Follow-up/Referrals: Vinayak Ames, DO [Primary Care Provider] - (one week) Diet: Regular Addtl Attending Provider Instructions: Medications: - DEXAMETHASONE: 6mg daily for 2 more days then stop, this is treatment for COVID pneumonia, inflammation - XARELTO: 10mg daily, this is low dose anticoagulation that reduces the risk of blood clots associated with COVID infection and being more sedentary take for one month then stop - OXYGEN: use as directed at rest and on exertion, should be able to titrate off oxygen after 1-2 weeks, limit your activity based on shortness of breath but your stamina shoud improve with time Pending Studies at Discharge: No Stand-Alone Forms: [employer] Smoking Cessation Medications and DC Order Prescriptions: New Xarelto 10 mg tablet 10 mg PO DAILY Qty: 30 RF: 0 Continued atorvastatin 40 mg tablet 40 mg PO HS Qty: 30 RF: 11 omeprazole 20 mg capsule,delayed release(DR/EC) 20 mg PO HS Qty: 30 RF: 11 loratadine [Claritin] 10 mg Tablet 10 mg PO HS RF: 0 multivitamin Tablet 1 tab PO QAM RF: 0 aspirin [Ecotrin Low Strength] 81 mg tablet,delayed release (DR/EC) 81 mg PO HS RF: 0 ibuprofen 200 mg Tablet 600 mg PO Q6H PRN (Reason: Pain) RF: 0 No Action (DME) Oxygen Home Liters Per Minute See Rx Instructions .Route Qty: 1 RF: 0 Discharge Orders: Discharge Order (Routine); Ordered 05/19/21 Ordered By: Louis Hughes/Other Patient Handouts: Prediabetes, 5 Steps for Eating Healthier, Exercise: Why Fitness Matters Admission Data Admit Date/Time: 05/12/21 11:23 Attending Provider: Louis Hunter Admit Provider: Deb Tracy Primary Care Provider: Vinayak Ames Other Providers: Deb Tracy Other Interventions: Discharge Summary Assessment (RN) Last Done: 05/19/21 12:27 Coding Level of Care Code D/C DAY MANAGEMENT >30 MINS Diagnoses Pneumonia due to COVID-19 virus U07.1; J12.82 Acute respiratory failure with hypoxia J96.01 Transaminitis R74.01 Impaired fasting glucose R73.01 History of stroke Z86.73 Obesity E66.9 PFO (patent foramen ovale) Q21.1 Hypercholesterolemia E78.00 Allergic rhinitis J30.9
== END 2021-05-19 14:17 | disposition home or self-care (01) | DRG 177 ==
LOC: ED 08:57 → SUATTDRO 11:23 → EDINP 11:23 → 2S 14:21 → 2W 05-18 23:39